=== PATIENT | female | born 1955 | race Two or more races ===

== ENCOUNTER 2017-06-22 19:32 | Inpatient (IN) | payer SELFPAY ==
[~2017-06-22] VITALS: Ht 152.4 cm; Wt 86.9 kg
[~2017-06-22 19:32] MED LIST: FLUO20CA8 PO; LISI1TAB5 PO; METO-239 PO
--- NOTE | 2017-06-22 19:59 | PHYS DOC ---
Past Medical History Past Medical History: Depression, High Cholesterol, Hypertension, Unknown, Other Additional Past Medical Histor: chest tumor, MENINGITIS R/T IBUPROFEN USE Past Surgical History: Hysterectomy Additional Past Surgical Histo: chest tumor removal, hernia Alcohol Use: None Drug Use: None Adult General Chief Complaint Chief Complaint: CHEST PAIN HPI HPI Patient is a 61 year old F who presents with chest pain or hypertension the past 3 hours. Patient rates her pain as a 10 out of 10 with heaviness on her chest. Patient has no history of a stent or CABG however does have a growth on her aortic valve is a history of a lung tumor. Patient denies any radiation of the pain. Patient states she was just sitting there when the pain came on and has not increased with exertion. Patient denies any shortness of breath. Patient denies any nausea/vomiting/diarrhea. He denies any fevers. Patient has no other complaints. Review of Systems Review of Systems GEN: Denies fevers, chills, sweats HEENT: Denies blurred vision, sore throat CV: chest pain RESP: Denies shortness of air, cough GI: Denies n/v/d NEURO: Denies confusion, dizziness MSK: Denies weakness, joint pain/swelling Current Medications Current Medications Current Medications Medications (Trade) Dose Ordered Sig/Oh Start Time Stop Time Status Last Admin Dose Admin Acetaminophen (Tylenol) 650 mg PRN Q4HRS PRN 06/22/17 21:45 06/23/17 21:44 Aspirin (Children'S Aspirin) 324 mg 1X ONCE 06/22/17 20:00 06/22/17 20:01 DC 06/22/17 20:07 324 MG Morphine Sulfate 4 mg PRN Q2HR PRN 06/22/17 21:45 06/23/17 21:44 Nitroglycerin (Nitrostat) 0.4 mg PRN Q5MIN PRN 06/22/17 21:45 06/23/17 21:44 Sodium Chloride 1,000 ml @ 1,000 mls/hr 1X ONCE 06/22/17 20:00 06/22/17 20:59 DC 06/22/17 20:07 1,000 MLS/HR Allergies Allergies Allergies Coded Allergies Type Severity Reaction Last Updated Verified Iodinated Contrast Media - IV Dye Allergy Intermediate 01/25/15 Yes ibuprofen Allergy Intermediate 01/25/15 Yes Physical Exam Physical Exam GEN.: No apparent distress. Alert and oriented. HEENT: Head is normocephalic, atraumatic NECK: Supple. LUNGS: CTAB. HEART: RRR, S1, S2 present. Peripheral pulses intact ABDOMEN: Soft, nontender. Positive bowel sounds. EXTREMITIES: Without any cyanosis. NEUROLOGIC: Normal speech, normal tone PSYCHIATRIC: Normal affect, normal mood. SKIN: No ulcerations Current Patient Data Vital Signs Vital Signs Date Time Temp Pulse Resp B/P (MAP) Pulse Ox O2 Delivery O2 Flow Rate FiO2 06/22/17 21:47 58 150/70 (96) Room Air 06/22/17 21:08 26 98 06/22/17 19:40 98.3 98.3 Lab Values Laboratory Tests Test 06/22/17 19:40 White Blood Count 11.7 x10^3/uL (4.0-11.0) H Red Blood Count 4.86 x10^6/uL (3.50-5.40) Hemoglobin 13.9 g/dL (12.0-15.5) Hematocrit 41.8 % (36.0-47.0) Mean Corpuscular Volume 86 fL (79-100) Mean Corpuscular Hemoglobin 29 pg (25-35) Mean Corpuscular Hemoglobin Concent 33 g/dL (31-37) Red Cell Distribution Width 14.2 % (11.5-14.5) Platelet Count 365 x10^3/uL (140-400) Neutrophils (%) (Auto) 56 % (31-73) Lymphocytes (%) (Auto) 34 % (24-48) Monocytes (%) (Auto) 7 % (0-9) Eosinophils (%) (Auto) 2 % (0-3) Basophils (%) (Auto) 1 % (0-3) Neutrophils # (Auto) 6.6 x10^3uL (1.8-7.7) Lymphocytes # (Auto) 4.0 x10^3/uL (1.0-4.8) Monocytes # (Auto) 0.8 x10^3/uL (0.0-1.1) Eosinophils # (Auto) 0.2 x10^3/uL (0.0-0.7) Basophils # (Auto) 0.1 x10^3/uL (0.0-0.2) Sodium Level 143 mmol/L (136-145) Potassium Level 3.7 mmol/L (3.5-5.1) Chloride Level 104 mmol/L (98-107) Carbon Dioxide Level 33 mmol/L (21-32) H Anion Gap 6 (6-14) Blood Urea Nitrogen 18 mg/dL (7-20) Creatinine 0.8 mg/dL (0.6-1.0) Estimated GFR (Cockcroft-Gault) 73.4 BUN/Creatinine Ratio 23 (6-20) H Glucose Level 114 mg/dL (70-99) H Calcium Level 9.3 mg/dL (8.5-10.1) Total Bilirubin 0.2 mg/dL (0.2-1.0) Aspartate Amino Transferase (AST) 20 U/L (15-37) Alanine Aminotransferase (ALT) 28 U/L (14-59) Alkaline Phosphatase 87 U/L (46-116) Troponin I Quantitative < 0.017 ng/mL (0.000-0.055) Total Protein 7.7 g/dL (6.4-8.2) Albumin 3.4 g/dL (3.4-5.0) Albumin/Globulin Ratio 0.8 (1.0-1.7) L Laboratory Tests 06/22/17 19:40 Laboratory Tests 06/22/17 19:40 EKG EKG 1940: EKG shows normal sinus rhythm rate of 76 no STEMI[] Radiology/Procedures Radiology/Procedures Chest x-ray shows cardiomegaly[] Course & Med Decision Making Course & Med Decision Making Pertinent Labs and Imaging studies reviewed. (See chart for details) ED course: Patient was seen and examined emergency room cardiac workup was ordered CTA scan of the chest was not ordered since the patient is severely allergic to contrast media 3: On reevaluation the patient's chest pain is resolved while sitting in the bed however when she got walk to the bathroom she had reproducible chest pain with exertion. Plan is to admit the patient for further evaluation and management. 2149: Discussed CC/HP/PMH with Dr. horton and recommends admit with cardiology on consult MDM: After reviewing the chart, CC/HPI/PMH, physical exam, [lab results], [ radiological results], I do not believe the patient having a STEMI however given her persistent chest pain and discomfort along with her age and previous risk factors we'll admit for further evaluation and management. A CT scan of the chest was not ordered secondary to the patient's severe contrast media allergy therefore we'll allow the admitting team to evaluate for the possibility or in need of a VQ scan. [] Dragon Disclaimer Dragon Disclaimer This electronic medical record was generated, in whole or in part, using a voice recognition dictation system. Departure Departure Impression: Primary Impression: Chest pain Disposition: ADMITTED INPATIENT Admitting Physician: Frieda Horton Condition: STABLE Referrals: UNKNOWN PCP NAME (PCP) MALIK CUNNINGHAM DO Jun 22, 2017 19:59
[2017-06-22] MEDS ORDERED: IV NORMAL SALINE 1000ML BAG 1,000 ML IV ONE (20:00)
[2017-06-22] MEDS ORDERED: ASPIRIN CHEWABLE 81 MG TABLET. PO ONE (20:00)
[2017-06-22 20:01] LABS: BASO # 0.1 x10^3/uL (0.0-0.2); BASO % 1 % (0-3); EOS % 2 % (0-3); HEMATOCRIT 41.8 % (36.0-47.0); HEMOGLOBIN 13.9 g/dL (12.0-15.5); LYMPH % 34 % (24-48); MEAN CORPUSCULAR HEMOGLOBIN 29 pg (25-35); MEAN CORPUSCULAR HGB CONC 33 g/dL (31-37); MEAN CORPUSCULAR VOLUME 86 fL (79-100); MONO % 7 % (0-9); NEUT % 56 % (31-73); PLATELET COUNT 365 x10^3/uL (140-400); RED BLOOD COUNT 4.86 x10^6/uL (3.50-5.40); RED CELL DISTRIBUTION WIDTH 14.2 % (11.5-14.5); WHITE BLOOD COUNT 11.7 x10^3/uL (4.0-11.0)
[2017-06-22 20:16] LABS: CALCIUM 9.3 mg/dL (8.5-10.1); CREATININE 0.8 mg/dL (0.6-1.0); GFR 73.4; POTASSIUM 3.7 mmol/L (3.5-5.1)
[2017-06-22 20:32] LABS: ALBUMIN 3.4 g/dL (3.4-5.0); ALBUMIN/GLOBULIN RATIO 0.8 (1.0-1.7); TOTAL BILIRUBIN 0.2 mg/dL (0.2-1.0); TOTAL PROTEIN 7.7 g/dL (6.4-8.2)
[2017-06-22] MEDS ORDERED: MORPHINE SULFATE 4 MG/ML DISP.SYRIN. IV PRN (21:45)
[2017-06-22] MEDS ORDERED: NITROGLYCERIN SUBLINGUAL 0.4 MG BOTTLE OF 25. SL PRN (21:45)
[2017-06-22] MEDS ORDERED: ACETAMINOPHEN 325 MG TABLET. PO PRN (21:45)
[2017-06-22 23:00] VITALS: BP 169/74
--- NOTE | 2017-06-22 23:14 | PDOC1 ---
History and Physical Date of Admission Date of Admission DATE: 06/22/17 TIME: 23:13 Identification/Chief Complaint Chief Complaint chest pain Problems: Source Source: Chart review, Patient History of Present Illness History of Present Illness Ms. Newell is a 61 year old F admit from ER with acute chest pain sudden onset of pain today at rest, sharp pain to left chest with pressure. She has rated her pain as a 10 out of 10 with heaviness on her chest. Pain now better, maybe 5/10 Patient has no history of a stent or CABG however does have a growth on her aortic valve is a history of a lung tumor. Patient states she was just sitting there when the pain came on w/ new exercise intolerane, and pain with exertion. . Patient denies any shortness of breath at rest. Patient denies any nausea/ vomiting/diarrhea. Past Medical History Cardiovascular: HTN Pulmonary: Asthma GI: No pertinent hx Family History Family History: Diabetes Social History Smoke: No ALCOHOL: none Drugs: None Current Problem List Problem List Problems Medical Problems: (1) Chest pain Status: Acute Problems: Current Medications Current Medications Current Medications Aspirin (Children'S Aspirin) 324 mg 1X ONCE PO Last administered on 20:07; Start 06/22/17 at 20:00; Stop 06/22/17 at 20:01; Status DC Sodium Chloride 1,000 ml @ 1,000 mls/hr 1X ONCE IV Last administered on 06/22 20:07; Start 06/22/17 at 20:00; Stop 06/22/17 at 20:59; Status DC Morphine Sulfate 4 mg PRN Q2HR PRN IV SEVERE PAIN; Start 06/22/17 at 21:45; Stop 06/23/17 at 21:44 Acetaminophen (Tylenol) 650 mg PRN Q4HRS PRN PO FEVER; Start 06/22/17 at 21:45 ; Stop 06/23/17 at 21:44 Nitroglycerin (Nitrostat) 0.4 mg PRN Q5MIN PRN SL CHEST PAIN; Start 06/22/17 at 21:45; Stop 06/23/17 at 21:44 Active Scripts Active Reported Metoprolol Succinate ( Xl ) (Metoprolol Succinate) 25 Mg Tab.er.24h 50 Mg PO DAILY Fluoxetine Hcl 20 Mg Capsule 1 Cap PO DAILY Lisinopril-Hctz 20-12.5 Mg Tab (Lisinopril/Hydrochlorothiazide) 1 Each Tablet 1 Tab PO BID Allergies Allergies: Coded Allergies: Iodinated Contrast Media - IV Dye (Verified Allergy, Intermediate, 01/25/15 ) ibuprofen (Verified Allergy, Intermediate, 01/25/15) ROS General: YES: Other, No: Chills, Night Sweats, Fatigue, Malaise PSYCHOLOGICAL ROS: No: Anxiety, Behavioral Disorder, Concentration difficultie , Decreased libido, Depression, Disorientation, Hallucinations, Hostility, Irritablity, Memory difficulties, Mood Swings, Obsessive thoughts HEENT: YES: Heacaches Respiratory: YES: Shortness of breath, SOB with excertion, No: Cough, Hemoptysis, Orthopnea, Pleuritic Pain, Sputum Changes, Stridor, Tachypnea, Wheezing, Other Cardiovascular: yes Chest Pain, No Palpitations, No Orthopnea, No Paroxysmal Noc. Dyspnea, No Edema, No Lt Headedness, No Other Gastrointestinal: Yes Nausea, No Vomiting, No Abdominal Pain, No Diarrhea, No Constipation, No Melena, No Hematochezia, No Other Genitourinary: No Dysuria, No Frequency, No Incontinence, No Hematuria, No Retention, No Discharge, No Urgency, No Pain, No Flank Pain, No Other, No , No , No , No , No , No , No Musculoskeletal: Yes Joint Pain, Yes Joint Stiffness, No Gait Disturbance, No Joint Swelling, No Muscle Pain, No Muscular Weakness , No Pain In:, No Swelling In:, No Other Neurological: No Behavorial Changes, No Bowel/Bladder ControlChng, No Confusion , No Dizziness, No Gait Disturbance, No Headaches, No Impaired Coord/balance, No Memory Loss, No Numbness/Tingling, No Seizures, No Speech Problems, No Tremors, No Visual Changes, No Weakness, No Other Skin: Yes Dry Skin, No Eczema, No Hair Changes, No Lumps, No Mole Changes, No Mottling, No Nail Changes, No Pruritus, No Rash, No Skin Lesion Changes, No Other, No Acne Physical Exam General: Alert, Cooperative, No acute distress HEENT: Atraumatic, PERRLA, EOMI, Mucous membr. moist/pink Lungs: Clear to auscultation Heart: S1S2, no gallops, murmurs Abdomen: Normal bowel sounds, Soft Rectal Exam: not examined Extremities: No edema Skin: No breakdown, No significant lesion Neuro: Normal gait, Sensation intact Psych/Mental Status: Mood NL Vitals Vitals Vital Signs Date Time Temp Pulse Resp B/P (MAP) Pulse Ox O2 Delivery O2 Flow Rate FiO2 06/22/17 21:47 58 150/70 (96) Room Air 06/22/17 21:08 26 98 06/22/17 19:40 98.3 98.3 Labs Labs Laboratory Tests Test 06/22/17 19:40 White Blood Count 11.7 x10^3/uL (4.0-11.0) Red Blood Count 4.86 x10^6/uL (3.50-5.40) Hemoglobin 13.9 g/dL (12.0-15.5) Hematocrit 41.8 % (36.0-47.0) Mean Corpuscular Volume 86 fL (79-100) Mean Corpuscular Hemoglobin 29 pg (25-35) Mean Corpuscular Hemoglobin Concent 33 g/dL (31-37) Red Cell Distribution Width 14.2 % (11.5-14.5) Platelet Count 365 x10^3/uL (140-400) Neutrophils (%) (Auto) 56 % (31-73) Lymphocytes (%) (Auto) 34 % (24-48) Monocytes (%) (Auto) 7 % (0-9) Eosinophils (%) (Auto) 2 % (0-3) Basophils (%) (Auto) 1 % (0-3) Neutrophils # (Auto) 6.6 x10^3uL (1.8-7.7) Lymphocytes # (Auto) 4.0 x10^3/uL (1.0-4.8) Monocytes # (Auto) 0.8 x10^3/uL (0.0-1.1) Eosinophils # (Auto) 0.2 x10^3/uL (0.0-0.7) Basophils # (Auto) 0.1 x10^3/uL (0.0-0.2) Sodium Level 143 mmol/L (136-145) Potassium Level 3.7 mmol/L (3.5-5.1) Chloride Level 104 mmol/L (98-107) Carbon Dioxide Level 33 mmol/L (21-32) Anion Gap 6 (6-14) Blood Urea Nitrogen 18 mg/dL (7-20) Creatinine 0.8 mg/dL (0.6-1.0) Estimated GFR (Cockcroft-Gault) 73.4 BUN/Creatinine Ratio 23 (6-20) Glucose Level 114 mg/dL (70-99) Calcium Level 9.3 mg/dL (8.5-10.1) Total Bilirubin 0.2 mg/dL (0.2-1.0) Aspartate Amino Transf (AST/SGOT) 20 U/L (15-37) Alanine Aminotransferase (ALT/SGPT) 28 U/L (14-59) Alkaline Phosphatase 87 U/L (46-116) Troponin I Quantitative < 0.017 ng/mL (0.000-0.055) Total Protein 7.7 g/dL (6.4-8.2) Albumin 3.4 g/dL (3.4-5.0) Albumin/Globulin Ratio 0.8 (1.0-1.7) Laboratory Tests Test 06/22/17 19:40 White Blood Count 11.7 x10^3/uL (4.0-11.0) Red Blood Count 4.86 x10^6/uL (3.50-5.40) Hemoglobin 13.9 g/dL (12.0-15.5) Hematocrit 41.8 % (36.0-47.0) Mean Corpuscular Volume 86 fL (79-100) Mean Corpuscular Hemoglobin 29 pg (25-35) Mean Corpuscular Hemoglobin Concent 33 g/dL (31-37) Red Cell Distribution Width 14.2 % (11.5-14.5) Platelet Count 365 x10^3/uL (140-400) Neutrophils (%) (Auto) 56 % (31-73) Lymphocytes (%) (Auto) 34 % (24-48) Monocytes (%) (Auto) 7 % (0-9) Eosinophils (%) (Auto) 2 % (0-3) Basophils (%) (Auto) 1 % (0-3) Neutrophils # (Auto) 6.6 x10^3uL (1.8-7.7) Lymphocytes # (Auto) 4.0 x10^3/uL (1.0-4.8) Monocytes # (Auto) 0.8 x10^3/uL (0.0-1.1) Eosinophils # (Auto) 0.2 x10^3/uL (0.0-0.7) Basophils # (Auto) 0.1 x10^3/uL (0.0-0.2) Sodium Level 143 mmol/L (136-145) Potassium Level 3.7 mmol/L (3.5-5.1) Chloride Level 104 mmol/L (98-107) Carbon Dioxide Level 33 mmol/L (21-32) Anion Gap 6 (6-14) Blood Urea Nitrogen 18 mg/dL (7-20) Creatinine 0.8 mg/dL (0.6-1.0) Estimated GFR (Cockcroft-Gault) 73.4 BUN/Creatinine Ratio 23 (6-20) Glucose Level 114 mg/dL (70-99) Calcium Level 9.3 mg/dL (8.5-10.1) Total Bilirubin 0.2 mg/dL (0.2-1.0) Aspartate Amino Transf (AST/SGOT) 20 U/L (15-37) Alanine Aminotransferase (ALT/SGPT) 28 U/L (14-59) Alkaline Phosphatase 87 U/L (46-116) Troponin I Quantitative < 0.017 ng/mL (0.000-0.055) Total Protein 7.7 g/dL (6.4-8.2) Albumin 3.4 g/dL (3.4-5.0) Albumin/Globulin Ratio 0.8 (1.0-1.7) VTE Prophylaxis Ordered VTE Prophylaxis Devices: No VTE Pharmacological Prophylaxi: Yes Assessment/Plan Assessment/Plan chest pain, angina, r/o acs pleuritic type pain, poss acute viral illnes with dyspnea, she desribed as "lungs feel closed" obeistdwayne, BMI 40 prior lung mass resected, known cardiac mass stable, has been following FABI Yuen MD Jun 22, 2017 23:14
[2017-06-23] MEDS ORDERED: METO50TA29 PO (00:07)
[2017-06-23] MEDS ORDERED: AMLO5TAB2 PO (00:07)
[2017-06-23] MEDS ORDERED: INFLUENZA VAX SCREEN BY RX. MC ONE (02:00)
[2017-06-23 03:04] VITALS: BP 135/69
[2017-06-23 05:14] LABS: BASO % 0 % (0-3); EOS % 2 % (0-3); HEMATOCRIT 39.7 % (36.0-47.0); HEMOGLOBIN 13.3 g/dL (12.0-15.5); LYMPH # 3.4 x10^3/uL (1.0-4.8); LYMPH % 37 % (24-48); MEAN CORPUSCULAR HEMOGLOBIN 29 pg (25-35); MEAN CORPUSCULAR HGB CONC 33 g/dL (31-37); MEAN CORPUSCULAR VOLUME 87 fL (79-100); MONO % 7 % (0-9); NEUT % 54 % (31-73); PLATELET COUNT 309 x10^3/uL (140-400); RED BLOOD COUNT 4.58 x10^6/uL (3.50-5.40); RED CELL DISTRIBUTION WIDTH 13.9 % (11.5-14.5)
[2017-06-23 05:31] LABS: CREATININE 0.5 mg/dL (0.6-1.0); GFR 126.3; POTASSIUM 4.3 mmol/L (3.5-5.1)
[2017-06-23 07:00] VITALS: BP 156/72
--- NOTE | 2017-06-23 07:58 | RAD ---
Indication: Short of air, chest heaviness. Technique: Upright portable chest radiograph was obtained. Comparison is from July 31, 2016. Findings: Heart is upper limits of normal in size. Pulmonary vasculature appears mildly cephalized although this can be accentuated by portable technique. Median sternotomy wires are noted. No focal airspace disease is apparent. Leads overlie the patient. Impression: Borderline cardiomegaly and mild vascular congestion suspected.
[2017-06-23] MEDS ORDERED: IPRATRPIUM/ALBUTEROL 0.5/2.5MG 3 ML NEBU. NEB SCH (08:00)
--- NOTE | 2017-06-23 08:11 | EKG ---
[facility] [address] [place] [address] Test Date: 2017-06-22 Test Time: 19:40:31 Pat Name: SHILA CHAVEZ Department: Room: Gender: F [employer]: : 1955 Requested By: MALIK CUNNINGHAM Order Number: [id number] Reading MD: Measurements Intervals [place] Rate: 76 P: 54 MA: 174 QRS: 10 QRSD: 84 T: 30 QT: 382 QTc: 434 Interpretive Statements SINUS RHYTHM NON SPECIFIC T ABNORMALITY RI6.01 Unconfirmed report No previous ECG available for comparison
[2017-06-23] MEDS ORDERED: FLU VACC QS2017-18 (36MOS+)/PF 0.5 ML SYRINGE. VAX IM ONE (09:00)
[2017-06-23 11:00] VITALS: BP 157/70
--- NOTE | 2017-06-23 11:16 | PDOC2 ---
CONSULT Date of Consult Date of Consult DATE: 06/23/17 TIME: 11:04 Reason for Consult Reason for Consult: Chest pain Identification/Chief Complaint Chief Complaint Chest Pain Problems: (1) Chest pain Source Source: Patient History of Present Illness Reason for Visit: Miss Newell is a pleasant 61 year old female who presented to the ED with chest pain. She reports that she has had chest pain with exertion for a several months , but this chest pain was worse and was at rest. This increased chest pain has been on and off consistently for the past two days. She described the chest pain as a heaviness, 10/10 at its worst, and a feeling of not being able to catch her breath. She also reports shortness of air on exertion and nausea. She also reports that for the past several months, she has had 5+ coughing episodes every day. She reports being around sick contacts--2 members of her family who live with her. In the past I saw her several years ago and she has an aortic subvalvular membrane that 5 years ago was estimated by a CUCA done in to have a gradient of 10 mmHg therefore he was not deemed to require surgery at that time. She had a normal left ventricular ejection fraction and no significant problems with the aortic valve. The pains that the patient has been having have been coming and going for some time and they are somewhat chronic. She has had multiple workups for this including stress tests, echocardiogram, CUCA. 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) Pulmonary: Asthma GI: No pertinent hx Psych: Depression Family History Family History Mother-[place] Sister-angina Brother-stroke Family History: Diabetes Social History No ALCOHOL: none Drugs: None Lives: with Family Current Problem List Problem List Problems Medical Problems: (1) Chest pain Status: Acute Current Medications Current Medications Current Medications Aspirin (Children'S Aspirin) 324 mg 1X ONCE PO Last administered on 20:07; Start 06/22/17 at 20:00; Stop 06/22/17 at 20:01; Status DC Sodium Chloride 1,000 ml @ 1,000 mls/hr 1X ONCE IV Last administered on 06/22 20:07; Start 06/22/17 at 20:00; Stop 06/22/17 at 20:59; Status DC Morphine Sulfate 4 mg PRN Q2HR PRN IV SEVERE PAIN; Start 06/22/17 at 21:45; Stop 06/23/17 at 21:44 Acetaminophen (Tylenol) 650 mg PRN Q4HRS PRN PO FEVER; Start 06/22/17 at 21:45 ; Stop 06/23/17 at 21:44 Nitroglycerin (Nitrostat) 0.4 mg PRN Q5MIN PRN SL CHEST PAIN; Start 06/22/17 at 21:45; Stop 06/23/17 at 21:44 Albuterol/ Ipratropium (Duoneb) 3 ml RTBID NEB Last administered on 06/23/17t 07:08; Start 06/23/17 at 08:00; Stop 06/23/17 at 10:00; Status DC Info (Do NOT chart on this placeholder) 1 each 1X ONCE MC ; Start 06/23/17 at 02:00; Stop 06/23/17 at 02:01; Status UNV Influenza Virus Vaccine Quadrival (Fluarix Quad [id number] Syringe) 0.5 ml ONCE ONCE VAX IM ; Start 06/23/17 at 09:00; Stop 06/23/17 at 09:01; Status DC Active Scripts Active Reported Amlodipine Besylate 5 Mg Tablet 5 Mg PO DAILY Metoprolol Succinate 50 Mg Tab.er.24h 100 Mg PO DAILY Fluoxetine Hcl 20 Mg Capsule 1 Cap PO DAILY Lisinopril-Hctz 20-12.5 Mg Tab (Lisinopril/Hydrochlorothiazide) 1 Each Tablet 1 Tab PO DAILY Allergies Allergies: Coded Allergies: Iodinated Contrast Media - IV Dye (Verified Allergy, Intermediate, 01/25/15 ) ibuprofen (Verified Allergy, Intermediate, 01/25/15) ROS Review of System +chest pain with exertion +nausea +coughing +shortness of air Physical Exam Physical Exam General: no acute distress, pleasant HEENT: EOMI, no oropharyngeal erythema, moist mucous membranes, no JVD CV: regular rate and rhythm. Normal S1, normal S2, there is a 1 to 2/6 systolic murmur present her add sides of the sternum, second intercostal space. No diastolic murmur was heard respiratory: clear to auscultation bilaterally; no increased work of breathing abdomen: soft, tender to palpation in lower abdomen, non-distended extremities: no clubbing, cyanosis or edema Vitals VITALS Vital Signs Date Time Temp Pulse Resp B/P (MAP) Pulse Ox O2 Delivery O2 Flow Rate FiO2 06/23/17 08:00 Room Air 06/23/17 07:09 98 06/23/17 07:00 98.0 61 18 156/72 (100) 98.0 Labs Labs Laboratory Tests Test 06/22/17 19:40 06/23/17 01:10 06/23/17 04:15 White Blood Count 11.7 x10^3/uL (4.0-11.0) 9.0 x10^3/uL (4.0-11.0) Red Blood Count 4.86 x10^6/uL (3.50-5.40) 4.58 x10^6/uL (3.50-5.40) Hemoglobin 13.9 g/dL (12.0-15.5) 13.3 g/dL (12.0-15.5) Hematocrit 41.8 % (36.0-47.0) 39.7 % (36.0-47.0) Mean Corpuscular Volume 86 fL (79-100) 87 fL (79-100) Mean Corpuscular Hemoglobin 29 pg (25-35) 29 pg (25-35) Mean Corpuscular Hemoglobin Concent 33 g/dL (31-37) 33 g/dL (31-37) Red Cell Distribution Width 14.2 % (11.5-14.5) 13.9 % (11.5-14.5) Platelet Count 365 x10^3/uL (140-400) 309 x10^3/uL (140-400) Neutrophils (%) (Auto) 56 % (31-73) 54 % (31-73) Lymphocytes (%) (Auto) 34 % (24-48) 37 % (24-48) Monocytes (%) (Auto) 7 % (0-9) 7 % (0-9) Eosinophils (%) (Auto) 2 % (0-3) 2 % (0-3) Basophils (%) (Auto) 1 % (0-3) 0 % (0-3) Neutrophils # (Auto) 6.6 x10^3uL (1.8-7.7) 4.8 x10^3uL (1.8-7.7) Lymphocytes # (Auto) 4.0 x10^3/uL (1.0-4.8) 3.4 x10^3/uL (1.0-4.8) Monocytes # (Auto) 0.8 x10^3/uL (0.0-1.1) 0.6 x10^3/uL (0.0-1.1) Eosinophils # (Auto) 0.2 x10^3/uL (0.0-0.7) 0.2 x10^3/uL (0.0-0.7) Basophils # (Auto) 0.1 x10^3/uL (0.0-0.2) 0.0 x10^3/uL (0.0-0.2) Sodium Level 143 mmol/L (136-145) 143 mmol/L (136-145) Potassium Level 3.7 mmol/L (3.5-5.1) 4.3 mmol/L (3.5-5.1) Chloride Level 104 mmol/L (98-107) 106 mmol/L (98-107) Carbon Dioxide Level 33 mmol/L (21-32) 30 mmol/L (21-32) Anion Gap 6 (6-14) 7 (6-14) Blood Urea Nitrogen 18 mg/dL (7-20) 13 mg/dL (7-20) Creatinine 0.8 mg/dL (0.6-1.0) 0.5 mg/dL (0.6-1.0) Estimated GFR (Cockcroft-Gault) 73.4 126.3 BUN/Creatinine Ratio 23 (6-20) Glucose Level 114 mg/dL (70-99) 101 mg/dL (70-99) Calcium Level 9.3 mg/dL (8.5-10.1) 9.0 mg/dL (8.5-10.1) Total Bilirubin 0.2 mg/dL (0.2-1.0) Aspartate Amino Transf (AST/SGOT) 20 U/L (15-37) Alanine Aminotransferase (ALT/SGPT) 28 U/L (14-59) Alkaline Phosphatase 87 U/L (46-116) Troponin I Quantitative < 0.017 ng/mL (0.000-0.055) < 0.017 ng/mL (0.000-0.055) < 0.017 ng/mL (0.000-0.055) Total Protein 7.7 g/dL (6.4-8.2) Albumin 3.4 g/dL (3.4-5.0) Albumin/Globulin Ratio 0.8 (1.0-1.7) Laboratory Tests Test 06/22/17 19:40 06/23/17 01:10 06/23/17 04:15 White Blood Count 11.7 x10^3/uL (4.0-11.0) 9.0 x10^3/uL (4.0-11.0) Red Blood Count 4.86 x10^6/uL (3.50-5.40) 4.58 x10^6/uL (3.50-5.40) Hemoglobin 13.9 g/dL (12.0-15.5) 13.3 g/dL (12.0-15.5) Hematocrit 41.8 % (36.0-47.0) 39.7 % (36.0-47.0) Mean Corpuscular Volume 86 fL (79-100) 87 fL (79-100) Mean Corpuscular Hemoglobin 29 pg (25-35) 29 pg (25-35) Mean Corpuscular Hemoglobin Concent 33 g/dL (31-37) 33 g/dL (31-37) Red Cell Distribution Width 14.2 % (11.5-14.5) 13.9 % (11.5-14.5) Platelet Count 365 x10^3/uL (140-400) 309 x10^3/uL (140-400) Neutrophils (%) (Auto) 56 % (31-73) 54 % (31-73) Lymphocytes (%) (Auto) 34 % (24-48) 37 % (24-48) Monocytes (%) (Auto) 7 % (0-9) 7 % (0-9) Eosinophils (%) (Auto) 2 % (0-3) 2 % (0-3) Basophils (%) (Auto) 1 % (0-3) 0 % (0-3) Neutrophils # (Auto) 6.6 x10^3uL (1.8-7.7) 4.8 x10^3uL (1.8-7.7) Lymphocytes # (Auto) 4.0 x10^3/uL (1.0-4.8) 3.4 x10^3/uL (1.0-4.8) Monocytes # (Auto) 0.8 x10^3/uL (0.0-1.1) 0.6 x10^3/uL (0.0-1.1) Eosinophils # (Auto) 0.2 x10^3/uL (0.0-0.7) 0.2 x10^3/uL (0.0-0.7) Basophils # (Auto) 0.1 x10^3/uL (0.0-0.2) 0.0 x10^3/uL (0.0-0.2) Sodium Level 143 mmol/L (136-145) 143 mmol/L (136-145) Potassium Level 3.7 mmol/L (3.5-5.1) 4.3 mmol/L (3.5-5.1) Chloride Level 104 mmol/L (98-107) 106 mmol/L (98-107) Carbon Dioxide Level 33 mmol/L (21-32) 30 mmol/L (21-32) Anion Gap 6 (6-14) 7 (6-14) Blood Urea Nitrogen 18 mg/dL (7-20) 13 mg/dL (7-20) Creatinine 0.8 mg/dL (0.6-1.0) 0.5 mg/dL (0.6-1.0) Estimated GFR (Cockcroft-Gault) 73.4 126.3 BUN/Creatinine Ratio 23 (6-20) Glucose Level 114 mg/dL (70-99) 101 mg/dL (70-99) Calcium Level 9.3 mg/dL (8.5-10.1) 9.0 mg/dL (8.5-10.1) Total Bilirubin 0.2 mg/dL (0.2-1.0) Aspartate Amino Transf (AST/SGOT) 20 U/L (15-37) Alanine Aminotransferase (ALT/SGPT) 28 U/L (14-59) Alkaline Phosphatase 87 U/L (46-116) Troponin I Quantitative < 0.017 ng/mL (0.000-0.055) < 0.017 ng/mL (0.000-0.055) < 0.017 ng/mL (0.000-0.055) Total Protein 7.7 g/dL (6.4-8.2) Albumin 3.4 g/dL (3.4-5.0) Albumin/Globulin Ratio 0.8 (1.0-1.7) Assessment/Plan Assessment/Plan 61 year old female admitted with chest pain Chest pain: negative troponins x3 and no significant changes in her EKG. 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 This is not HOCM. In view of this I would like to do an echocardiogram and then depending on what the echocardiogram shows decide if we need to do a heart catheterization or a CUCA or a stress test. Thank you very much for asking me to participate in the care of this patient. NING OLIVARES MD Jun 23, 2017 11:16
--- NOTE | 2017-06-23 12:29 | PDOC ---
PROGRESS NOTES Chief Complaint Chief Complaint CHest pain History of Present Illness History of Present Illness Patient was seen with her in cardiovascular care unit. Pt speaks minimal khmer and her served as stitcher operator. She was admitted from ER with acute, sudden onset chest pain that started at rest (sharp pain w/ pressure to left chest). Patient is resting comfortably in bed today. 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 She is followed by Dr. Sandhu re: her valvular growth. Patient has an allergy to IV contrast dye. Vitals Vitals Vital Signs Date Time Temp Pulse Resp B/P (MAP) Pulse Ox O2 Delivery O2 Flow Rate FiO2 06/23/17 08:00 Room Air 06/23/17 07:09 98 06/23/17 07:00 98.0 61 18 156/72 (100) 98.0 Physical Exam General: Alert, Cooperative, No acute distress Lungs: Clear Abdomen: Normal bowel sounds, Soft Extremities: No edema Skin: No breakdown, No significant lesion Labs LABS Laboratory Tests Test 06/22/17 19:40 06/23/17 01:10 06/23/17 04:15 White Blood Count 11.7 x10^3/uL (4.0-11.0) 9.0 x10^3/uL (4.0-11.0) Red Blood Count 4.86 x10^6/uL (3.50-5.40) 4.58 x10^6/uL (3.50-5.40) Hemoglobin 13.9 g/dL (12.0-15.5) 13.3 g/dL (12.0-15.5) Hematocrit 41.8 % (36.0-47.0) 39.7 % (36.0-47.0) Mean Corpuscular Volume 86 fL (79-100) 87 fL (79-100) Mean Corpuscular Hemoglobin 29 pg (25-35) 29 pg (25-35) Mean Corpuscular Hemoglobin Concent 33 g/dL (31-37) 33 g/dL (31-37) Red Cell Distribution Width 14.2 % (11.5-14.5) 13.9 % (11.5-14.5) Platelet Count 365 x10^3/uL (140-400) 309 x10^3/uL (140-400) Neutrophils (%) (Auto) 56 % (31-73) 54 % (31-73) Lymphocytes (%) (Auto) 34 % (24-48) 37 % (24-48) Monocytes (%) (Auto) 7 % (0-9) 7 % (0-9) Eosinophils (%) (Auto) 2 % (0-3) 2 % (0-3) Basophils (%) (Auto) 1 % (0-3) 0 % (0-3) Neutrophils # (Auto) 6.6 x10^3uL (1.8-7.7) 4.8 x10^3uL (1.8-7.7) Lymphocytes # (Auto) 4.0 x10^3/uL (1.0-4.8) 3.4 x10^3/uL (1.0-4.8) Monocytes # (Auto) 0.8 x10^3/uL (0.0-1.1) 0.6 x10^3/uL (0.0-1.1) Eosinophils # (Auto) 0.2 x10^3/uL (0.0-0.7) 0.2 x10^3/uL (0.0-0.7) Basophils # (Auto) 0.1 x10^3/uL (0.0-0.2) 0.0 x10^3/uL (0.0-0.2) Sodium Level 143 mmol/L (136-145) 143 mmol/L (136-145) Potassium Level 3.7 mmol/L (3.5-5.1) 4.3 mmol/L (3.5-5.1) Chloride Level 104 mmol/L (98-107) 106 mmol/L (98-107) Carbon Dioxide Level 33 mmol/L (21-32) 30 mmol/L (21-32) Anion Gap 6 (6-14) 7 (6-14) Blood Urea Nitrogen 18 mg/dL (7-20) 13 mg/dL (7-20) Creatinine 0.8 mg/dL (0.6-1.0) 0.5 mg/dL (0.6-1.0) Estimated GFR (Cockcroft-Gault) 73.4 126.3 BUN/Creatinine Ratio 23 (6-20) Glucose Level 114 mg/dL (70-99) 101 mg/dL (70-99) Calcium Level 9.3 mg/dL (8.5-10.1) 9.0 mg/dL (8.5-10.1) Total Bilirubin 0.2 mg/dL (0.2-1.0) Aspartate Amino Transf (AST/SGOT) 20 U/L (15-37) Alanine Aminotransferase (ALT/SGPT) 28 U/L (14-59) Alkaline Phosphatase 87 U/L (46-116) Troponin I Quantitative < 0.017 ng/mL (0.000-0.055) < 0.017 ng/mL (0.000-0.055) < 0.017 ng/mL (0.000-0.055) Total Protein 7.7 g/dL (6.4-8.2) Albumin 3.4 g/dL (3.4-5.0) Albumin/Globulin Ratio 0.8 (1.0-1.7) Review of Systems Review of Systems Patient indicates CP is improving. No SOB. No abdominal pain or discomfort. Assessment and Plan Assessmemt and Plan Problems Medical Problems: (1) Chest pain Status: Acute Chest pain Plan: Consult cardiology Consult pulmonology Continue cardiac monitoring Serial cardiac enzymes Serial EKG Repeat labs Continue home medications Await [facility] medical records PT/OT Problems: Comment Review of Relevant I have reviewed the following items edu (where applicable) has been applied. Labs Laboratory Tests Test 06/22/17 19:40 06/23/17 01:10 06/23/17 04:15 White Blood Count 11.7 x10^3/uL (4.0-11.0) 9.0 x10^3/uL (4.0-11.0) Red Blood Count 4.86 x10^6/uL (3.50-5.40) 4.58 x10^6/uL (3.50-5.40) Hemoglobin 13.9 g/dL (12.0-15.5) 13.3 g/dL (12.0-15.5) Hematocrit 41.8 % (36.0-47.0) 39.7 % (36.0-47.0) Mean Corpuscular Volume 86 fL (79-100) 87 fL (79-100) Mean Corpuscular Hemoglobin 29 pg (25-35) 29 pg (25-35) Mean Corpuscular Hemoglobin Concent 33 g/dL (31-37) 33 g/dL (31-37) Red Cell Distribution Width 14.2 % (11.5-14.5) 13.9 % (11.5-14.5) Platelet Count 365 x10^3/uL (140-400) 309 x10^3/uL (140-400) Neutrophils (%) (Auto) 56 % (31-73) 54 % (31-73) Lymphocytes (%) (Auto) 34 % (24-48) 37 % (24-48) Monocytes (%) (Auto) 7 % (0-9) 7 % (0-9) Eosinophils (%) (Auto) 2 % (0-3) 2 % (0-3) Basophils (%) (Auto) 1 % (0-3) 0 % (0-3) Neutrophils # (Auto) 6.6 x10^3uL (1.8-7.7) 4.8 x10^3uL (1.8-7.7) Lymphocytes # (Auto) 4.0 x10^3/uL (1.0-4.8) 3.4 x10^3/uL (1.0-4.8) Monocytes # (Auto) 0.8 x10^3/uL (0.0-1.1) 0.6 x10^3/uL (0.0-1.1) Eosinophils # (Auto) 0.2 x10^3/uL (0.0-0.7) 0.2 x10^3/uL (0.0-0.7) Basophils # (Auto) 0.1 x10^3/uL (0.0-0.2) 0.0 x10^3/uL (0.0-0.2) Sodium Level 143 mmol/L (136-145) 143 mmol/L (136-145) Potassium Level 3.7 mmol/L (3.5-5.1) 4.3 mmol/L (3.5-5.1) Chloride Level 104 mmol/L (98-107) 106 mmol/L (98-107) Carbon Dioxide Level 33 mmol/L (21-32) 30 mmol/L (21-32) Anion Gap 6 (6-14) 7 (6-14) Blood Urea Nitrogen 18 mg/dL (7-20) 13 mg/dL (7-20) Creatinine 0.8 mg/dL (0.6-1.0) 0.5 mg/dL (0.6-1.0) Estimated GFR (Cockcroft-Gault) 73.4 126.3 BUN/Creatinine Ratio 23 (6-20) Glucose Level 114 mg/dL (70-99) 101 mg/dL (70-99) Calcium Level 9.3 mg/dL (8.5-10.1) 9.0 mg/dL (8.5-10.1) Total Bilirubin 0.2 mg/dL (0.2-1.0) Aspartate Amino Transf (AST/SGOT) 20 U/L (15-37) Alanine Aminotransferase (ALT/SGPT) 28 U/L (14-59) Alkaline Phosphatase 87 U/L (46-116) Troponin I Quantitative < 0.017 ng/mL (0.000-0.055) < 0.017 ng/mL (0.000-0.055) < 0.017 ng/mL (0.000-0.055) Total Protein 7.7 g/dL (6.4-8.2) Albumin 3.4 g/dL (3.4-5.0) Albumin/Globulin Ratio 0.8 (1.0-1.7) Laboratory Tests Test 06/22/17 19:40 06/23/17 01:10 06/23/17 04:15 White Blood Count 11.7 x10^3/uL (4.0-11.0) 9.0 x10^3/uL (4.0-11.0) Red Blood Count 4.86 x10^6/uL (3.50-5.40) 4.58 x10^6/uL (3.50-5.40) Hemoglobin 13.9 g/dL (12.0-15.5) 13.3 g/dL (12.0-15.5) Hematocrit 41.8 % (36.0-47.0) 39.7 % (36.0-47.0) Mean Corpuscular Volume 86 fL (79-100) 87 fL (79-100) Mean Corpuscular Hemoglobin 29 pg (25-35) 29 pg (25-35) Mean Corpuscular Hemoglobin Concent 33 g/dL (31-37) 33 g/dL (31-37) Red Cell Distribution Width 14.2 % (11.5-14.5) 13.9 % (11.5-14.5) Platelet Count 365 x10^3/uL (140-400) 309 x10^3/uL (140-400) Neutrophils (%) (Auto) 56 % (31-73) 54 % (31-73) Lymphocytes (%) (Auto) 34 % (24-48) 37 % (24-48) Monocytes (%) (Auto) 7 % (0-9) 7 % (0-9) Eosinophils (%) (Auto) 2 % (0-3) 2 % (0-3) Basophils (%) (Auto) 1 % (0-3) 0 % (0-3) Neutrophils # (Auto) 6.6 x10^3uL (1.8-7.7) 4.8 x10^3uL (1.8-7.7) Lymphocytes # (Auto) 4.0 x10^3/uL (1.0-4.8) 3.4 x10^3/uL (1.0-4.8) Monocytes # (Auto) 0.8 x10^3/uL (0.0-1.1) 0.6 x10^3/uL (0.0-1.1) Eosinophils # (Auto) 0.2 x10^3/uL (0.0-0.7) 0.2 x10^3/uL (0.0-0.7) Basophils # (Auto) 0.1 x10^3/uL (0.0-0.2) 0.0 x10^3/uL (0.0-0.2) Sodium Level 143 mmol/L (136-145) 143 mmol/L (136-145) Potassium Level 3.7 mmol/L (3.5-5.1) 4.3 mmol/L (3.5-5.1) Chloride Level 104 mmol/L (98-107) 106 mmol/L (98-107) Carbon Dioxide Level 33 mmol/L (21-32) 30 mmol/L (21-32) Anion Gap 6 (6-14) 7 (6-14) Blood Urea Nitrogen 18 mg/dL (7-20) 13 mg/dL (7-20) Creatinine 0.8 mg/dL (0.6-1.0) 0.5 mg/dL (0.6-1.0) Estimated GFR (Cockcroft-Gault) 73.4 126.3 BUN/Creatinine Ratio 23 (6-20) Glucose Level 114 mg/dL (70-99) 101 mg/dL (70-99) Calcium Level 9.3 mg/dL (8.5-10.1) 9.0 mg/dL (8.5-10.1) Total Bilirubin 0.2 mg/dL (0.2-1.0) Aspartate Amino Transf (AST/SGOT) 20 U/L (15-37) Alanine Aminotransferase (ALT/SGPT) 28 U/L (14-59) Alkaline Phosphatase 87 U/L (46-116) Troponin I Quantitative < 0.017 ng/mL (0.000-0.055) < 0.017 ng/mL (0.000-0.055) < 0.017 ng/mL (0.000-0.055) Total Protein 7.7 g/dL (6.4-8.2) Albumin 3.4 g/dL (3.4-5.0) Albumin/Globulin Ratio 0.8 (1.0-1.7) Medications Current Medications Aspirin (Children'S Aspirin) 324 mg 1X ONCE PO Last administered on 20:07; Start 06/22/17 at 20:00; Stop 06/22/17 at 20:01; Status DC Sodium Chloride 1,000 ml @ 1,000 mls/hr 1X ONCE IV Last administered on 06/22 20:07; Start 06/22/17 at 20:00; Stop 06/22/17 at 20:59; Status DC Morphine Sulfate 4 mg PRN Q2HR PRN IV SEVERE PAIN; Start 06/22/17 at 21:45; Stop 06/23/17 at 21:44 Acetaminophen (Tylenol) 650 mg PRN Q4HRS PRN PO FEVER; Start 06/22/17 at 21:45 ; Stop 06/23/17 at 21:44 Nitroglycerin (Nitrostat) 0.4 mg PRN Q5MIN PRN SL CHEST PAIN; Start 06/22/17 at 21:45; Stop 06/23/17 at 21:44 Albuterol/ Ipratropium (Duoneb) 3 ml RTBID NEB Last administered on 06/23/17t 07:08; Start 06/23/17 at 08:00; Stop 06/23/17 at 10:00; Status DC Info (Do NOT chart on this placeholder) 1 each 1X ONCE MC ; Start 06/23/17 at 02:00; Stop 06/23/17 at 02:01; Status UNV Influenza Virus Vaccine Quadrival (Fluarix Quad [id number] Syringe) 0.5 ml ONCE ONCE VAX IM ; Start 06/23/17 at 09:00; Stop 06/23/17 at 09:01; Status DC Active Scripts Active Reported Amlodipine Besylate 5 Mg Tablet 5 Mg PO DAILY Metoprolol Succinate 50 Mg Tab.er.24h 100 Mg PO DAILY Fluoxetine Hcl 20 Mg Capsule 1 Cap PO DAILY Lisinopril-Hctz 20-12.5 Mg Tab (Lisinopril/Hydrochlorothiazide) 1 Each Tablet 1 Tab PO DAILY Vitals/I & O Vital Sign - Last 24 Hours 06/22/17 06/22/17 06/22/17 06/22/17 19:40 20:01 20:31 20:38 Temp 98.3 98.3 Pulse 65 62 60 61 Resp 16 26 17 B/P (MAP) 182/83 (116) 172/87 (115) 158/69 (98) 158/70 (99) Pulse Ox 99 96 99 O2 Delivery Room Air Room Air Room Air 06/22/17 06/22/17 06/22/17 06/23/17 21:08 21:47 23:00 00:13 Temp 97.9 97.9 Pulse 59 58 58 Resp 26 20 B/P (MAP) 145/59 (87) 150/70 (96) 169/74 (105) Pulse Ox 98 99 O2 Delivery Room Air Room Air Room Air Room Air 06/23/17 06/23/17 06/23/17 06/23/17 03:04 07:00 07:09 08:00 Temp 98.3 98.0 98.3 98.0 Pulse 56 61 Resp 18 18 B/P (MAP) 135/69 (91) 156/72 (100) Pulse Ox 96 95 98 O2 Delivery Room Air Room Air Room Air Room Air JENISE HUANG III DO Jun 23, 2017 12:29
[2017-06-23 15:00] VITALS: BP 162/70
--- NOTE | 2017-06-23 17:33 | PDOC ---
PULMONARY PROGRESS NOTES Vitals Vital Signs Date Time Temp Pulse Resp B/P (MAP) Pulse Ox O2 Delivery O2 Flow Rate FiO2 06/23/17 15:00 98.1 72 18 162/70 (100) 97 Room Air 98.1 Lungs: Clear Labs Laboratory Tests Test 06/22/17 19:40 06/23/17 01:10 06/23/17 04:15 White Blood Count 11.7 x10^3/uL (4.0-11.0) 9.0 x10^3/uL (4.0-11.0) Red Blood Count 4.86 x10^6/uL (3.50-5.40) 4.58 x10^6/uL (3.50-5.40) Hemoglobin 13.9 g/dL (12.0-15.5) 13.3 g/dL (12.0-15.5) Hematocrit 41.8 % (36.0-47.0) 39.7 % (36.0-47.0) Mean Corpuscular Volume 86 fL (79-100) 87 fL (79-100) Mean Corpuscular Hemoglobin 29 pg (25-35) 29 pg (25-35) Mean Corpuscular Hemoglobin Concent 33 g/dL (31-37) 33 g/dL (31-37) Red Cell Distribution Width 14.2 % (11.5-14.5) 13.9 % (11.5-14.5) Platelet Count 365 x10^3/uL (140-400) 309 x10^3/uL (140-400) Neutrophils (%) (Auto) 56 % (31-73) 54 % (31-73) Lymphocytes (%) (Auto) 34 % (24-48) 37 % (24-48) Monocytes (%) (Auto) 7 % (0-9) 7 % (0-9) Eosinophils (%) (Auto) 2 % (0-3) 2 % (0-3) Basophils (%) (Auto) 1 % (0-3) 0 % (0-3) Neutrophils # (Auto) 6.6 x10^3uL (1.8-7.7) 4.8 x10^3uL (1.8-7.7) Lymphocytes # (Auto) 4.0 x10^3/uL (1.0-4.8) 3.4 x10^3/uL (1.0-4.8) Monocytes # (Auto) 0.8 x10^3/uL (0.0-1.1) 0.6 x10^3/uL (0.0-1.1) Eosinophils # (Auto) 0.2 x10^3/uL (0.0-0.7) 0.2 x10^3/uL (0.0-0.7) Basophils # (Auto) 0.1 x10^3/uL (0.0-0.2) 0.0 x10^3/uL (0.0-0.2) Sodium Level 143 mmol/L (136-145) 143 mmol/L (136-145) Potassium Level 3.7 mmol/L (3.5-5.1) 4.3 mmol/L (3.5-5.1) Chloride Level 104 mmol/L (98-107) 106 mmol/L (98-107) Carbon Dioxide Level 33 mmol/L (21-32) 30 mmol/L (21-32) Anion Gap 6 (6-14) 7 (6-14) Blood Urea Nitrogen 18 mg/dL (7-20) 13 mg/dL (7-20) Creatinine 0.8 mg/dL (0.6-1.0) 0.5 mg/dL (0.6-1.0) Estimated GFR (Cockcroft-Gault) 73.4 126.3 BUN/Creatinine Ratio 23 (6-20) Glucose Level 114 mg/dL (70-99) 101 mg/dL (70-99) Calcium Level 9.3 mg/dL (8.5-10.1) 9.0 mg/dL (8.5-10.1) Total Bilirubin 0.2 mg/dL (0.2-1.0) Aspartate Amino Transf (AST/SGOT) 20 U/L (15-37) Alanine Aminotransferase (ALT/SGPT) 28 U/L (14-59) Alkaline Phosphatase 87 U/L (46-116) Troponin I Quantitative < 0.017 ng/mL (0.000-0.055) < 0.017 ng/mL (0.000-0.055) < 0.017 ng/mL (0.000-0.055) Total Protein 7.7 g/dL (6.4-8.2) Albumin 3.4 g/dL (3.4-5.0) Albumin/Globulin Ratio 0.8 (1.0-1.7) Laboratory Tests Test 06/22/17 19:40 06/23/17 01:10 06/23/17 04:15 White Blood Count 11.7 x10^3/uL (4.0-11.0) 9.0 x10^3/uL (4.0-11.0) Red Blood Count 4.86 x10^6/uL (3.50-5.40) 4.58 x10^6/uL (3.50-5.40) Hemoglobin 13.9 g/dL (12.0-15.5) 13.3 g/dL (12.0-15.5) Hematocrit 41.8 % (36.0-47.0) 39.7 % (36.0-47.0) Mean Corpuscular Volume 86 fL (79-100) 87 fL (79-100) Mean Corpuscular Hemoglobin 29 pg (25-35) 29 pg (25-35) Mean Corpuscular Hemoglobin Concent 33 g/dL (31-37) 33 g/dL (31-37) Red Cell Distribution Width 14.2 % (11.5-14.5) 13.9 % (11.5-14.5) Platelet Count 365 x10^3/uL (140-400) 309 x10^3/uL (140-400) Neutrophils (%) (Auto) 56 % (31-73) 54 % (31-73) Lymphocytes (%) (Auto) 34 % (24-48) 37 % (24-48) Monocytes (%) (Auto) 7 % (0-9) 7 % (0-9) Eosinophils (%) (Auto) 2 % (0-3) 2 % (0-3) Basophils (%) (Auto) 1 % (0-3) 0 % (0-3) Neutrophils # (Auto) 6.6 x10^3uL (1.8-7.7) 4.8 x10^3uL (1.8-7.7) Lymphocytes # (Auto) 4.0 x10^3/uL (1.0-4.8) 3.4 x10^3/uL (1.0-4.8) Monocytes # (Auto) 0.8 x10^3/uL (0.0-1.1) 0.6 x10^3/uL (0.0-1.1) Eosinophils # (Auto) 0.2 x10^3/uL (0.0-0.7) 0.2 x10^3/uL (0.0-0.7) Basophils # (Auto) 0.1 x10^3/uL (0.0-0.2) 0.0 x10^3/uL (0.0-0.2) Sodium Level 143 mmol/L (136-145) 143 mmol/L (136-145) Potassium Level 3.7 mmol/L (3.5-5.1) 4.3 mmol/L (3.5-5.1) Chloride Level 104 mmol/L (98-107) 106 mmol/L (98-107) Carbon Dioxide Level 33 mmol/L (21-32) 30 mmol/L (21-32) Anion Gap 6 (6-14) 7 (6-14) Blood Urea Nitrogen 18 mg/dL (7-20) 13 mg/dL (7-20) Creatinine 0.8 mg/dL (0.6-1.0) 0.5 mg/dL (0.6-1.0) Estimated GFR (Cockcroft-Gault) 73.4 126.3 BUN/Creatinine Ratio 23 (6-20) Glucose Level 114 mg/dL (70-99) 101 mg/dL (70-99) Calcium Level 9.3 mg/dL (8.5-10.1) 9.0 mg/dL (8.5-10.1) Total Bilirubin 0.2 mg/dL (0.2-1.0) Aspartate Amino Transf (AST/SGOT) 20 U/L (15-37) Alanine Aminotransferase (ALT/SGPT) 28 U/L (14-59) Alkaline Phosphatase 87 U/L (46-116) Troponin I Quantitative < 0.017 ng/mL (0.000-0.055) < 0.017 ng/mL (0.000-0.055) < 0.017 ng/mL (0.000-0.055) Total Protein 7.7 g/dL (6.4-8.2) Albumin 3.4 g/dL (3.4-5.0) Albumin/Globulin Ratio 0.8 (1.0-1.7) Medications Active Scripts Medications Dose Route/Sig Max Daily Dose Days Date Category Amlodipine Besylate 5 Mg Tablet 5 Mg PO DAILY 06/23/17 Reported Metoprolol Succinate 50 Mg Tab.er.24h 100 Mg PO DAILY 06/23/17 Reported Fluoxetine Hcl 20 Mg Capsule 1 Cap PO DAILY 07/31/16 Reported Lisinopril-Hctz 20-12.5 Mg Tab (Lisinopril/Hydrochlorothiazide) 1 Each Tablet 1 Tab PO DAILY 07/31/16 Reported Impression . note dictated progressive dyspnea sec to chf not pulmonary in origin cardiac work up in progress thanks INDIGO VENEGAS MD Jun 23, 2017 17:33
[2017-06-23 19:52] VITALS: BP 155/69
--- NOTE | 2017-06-23 22:06 | CONS ---
DATE OF CONSULTATION: 06/23/2017 ATTENDING PHYSICIAN: Dr. Frieda Garcia. REASON FOR CONSULTATION: The patient is seen in pulmonary consultation at the request of Dr. Garcia for increasing shortness of breath. HISTORY OF PRESENT ILLNESS: The patient is a 61-year-old that presented mainly with chest pain and increasing shortness of breath. Over the last several months, she had chest pain with exertion that improved with rest. She has a cough, mostly nonproductive. She denies fever, chills or night sweats. Chest x-ray was obtained. There was evidence of bilateral pulmonary infiltrates compatible with CHF. I was asked to see her in consultation. The patient used to smoke, quit many years ago, smoked for about 20 years. PAST MEDICAL HISTORY: COPD, hypertension, previous coronary artery disease which was described as mild. FAMILY HISTORY: Coronary artery disease. ALLERGIES: TO IBUPROFEN CONTRAST DYE. CURRENT MEDICATIONS: List was reviewed. PHYSICAL EXAMINATION: GENERAL: The patient was in no respiratory distress. VITAL SIGNS: Stable. O2 saturation currently on room air, greater than 95%. HEENT: Eyes, the sclerae were nonicteric. NECK: Jugular venous distention was not elevated. No lymphadenopathy. CHEST: Full expansion. LUNGS: Adequate airway flow. No wheezes, rales or rhonchi. CARDIOVASCULAR: Regular rate and rhythm with S1, S2, no S3. ABDOMEN: Soft, nontender, nondistended. EXTREMITIES: No clubbing, cyanosis or edema. LABORATORY DATA: Reviewed. White count was normal. Hemoglobin and hematocrit noted. BNP was not obtained. Electrolytes were noted. Troponin was normal. IMPRESSION: 1. Progressive dyspnea secondary to acute systolic heart failure. 2. Acute abnormal x-ray compatible with heart failure. 3. Chronic obstructive pulmonary disease with no acute exacerbation. 4. Tobacco dependence in remission. PLAN: 1. Follow cardiology input. 2. No further pulmonary workup needed. I suspect most of her symptoms are cardiac in origin. I do appreciate the privilege in sharing the patient's care. INDIGO VENEGAS MD DR: HILLARY/riley JOB#: [id number] / [id number]
[2017-06-23 23:14] VITALS: BP 153/70
[2017-06-24 02:38] VITALS: BP 150/71
[2017-06-24 03:57] LABS: BASO % 1 % (0-3); EOS % 2 % (0-3); HEMATOCRIT 41.4 % (36.0-47.0); HEMOGLOBIN 13.8 g/dL (12.0-15.5); LYMPH # 2.9 x10^3/uL (1.0-4.8); LYMPH % 34 % (24-48); MEAN CORPUSCULAR HEMOGLOBIN 29 pg (25-35); MEAN CORPUSCULAR HGB CONC 33 g/dL (31-37); MEAN CORPUSCULAR VOLUME 86 fL (79-100); MONO % 7 % (0-9); NEUT % 56 % (31-73); PLATELET COUNT 309 x10^3/uL (140-400); RED BLOOD COUNT 4.83 x10^6/uL (3.50-5.40); RED CELL DISTRIBUTION WIDTH 13.9 % (11.5-14.5); WHITE BLOOD COUNT 8.6 x10^3/uL (4.0-11.0)
[2017-06-24 04:22] LABS: CALCIUM 8.9 mg/dL (8.5-10.1); CREATININE 0.7 mg/dL (0.6-1.0); GFR 85.6; POTASSIUM 4.2 mmol/L (3.5-5.1)
[2017-06-24 06:35] LABS: CHOLESTEROL/HDL RATIO 5.5
[2017-06-24 07:00] VITALS: BP 144/75
[2017-06-24 10:55] VITALS: BP 138/62
--- NOTE | 2017-06-24 13:11 | PDOC ---
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 Pt speaks minimal french and her daughter in law served as press tender smoke signal. She was admitted from ER with acute, sudden onset chest pain that started at rest ( sharp pain w/ pressure to left chest). Patient is resting comfortably in bed today. 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 Patient's daughter in law said that the patient has "occasional trouble of catching breath," but other than that she has no other complains. No edema or pain present on lower extremities. She is followed by cardiology and pulmonology. Patient is waiting for Echo. Patient has an allergy to IV contrast dye. Vitals Vitals Vital Signs Date Time Temp Pulse Resp B/P (MAP) Pulse Ox O2 Delivery O2 Flow Rate FiO2 06/24/17 10:55 97.8 69 18 138/62 (87) 97 Room Air 97.8 Physical Exam General: Alert, Cooperative, No acute distress Heart: Regular rate Lungs: Clear Abdomen: Normal bowel sounds, Soft Extremities: No cyanosis, No edema Skin: No breakdown, No significant lesion Labs LABS Laboratory Tests Test 06/24/17 03:39 White Blood Count 8.6 x10^3/uL (4.0-11.0) Red Blood Count 4.83 x10^6/uL (3.50-5.40) Hemoglobin 13.8 g/dL (12.0-15.5) Hematocrit 41.4 % (36.0-47.0) Mean Corpuscular Volume 86 fL (79-100) Mean Corpuscular Hemoglobin 29 pg (25-35) Mean Corpuscular Hemoglobin Concent 33 g/dL (31-37) Red Cell Distribution Width 13.9 % (11.5-14.5) Platelet Count 309 x10^3/uL (140-400) Neutrophils (%) (Auto) 56 % (31-73) Lymphocytes (%) (Auto) 34 % (24-48) Monocytes (%) (Auto) 7 % (0-9) Eosinophils (%) (Auto) 2 % (0-3) Basophils (%) (Auto) 1 % (0-3) Neutrophils # (Auto) 4.8 x10^3uL (1.8-7.7) Lymphocytes # (Auto) 2.9 x10^3/uL (1.0-4.8) Monocytes # (Auto) 0.6 x10^3/uL (0.0-1.1) Eosinophils # (Auto) 0.2 x10^3/uL (0.0-0.7) Basophils # (Auto) 0.0 x10^3/uL (0.0-0.2) Sodium Level 141 mmol/L (136-145) Potassium Level 4.2 mmol/L (3.5-5.1) Chloride Level 105 mmol/L (98-107) Carbon Dioxide Level 30 mmol/L (21-32) Anion Gap 6 (6-14) Blood Urea Nitrogen 16 mg/dL (7-20) Creatinine 0.7 mg/dL (0.6-1.0) Estimated GFR (Cockcroft-Gault) 85.6 Glucose Level 104 mg/dL (70-99) Calcium Level 8.9 mg/dL (8.5-10.1) Triglycerides Level 130 mg/dL (0-150) Cholesterol Level 216 mg/dL (0-200) LDL Cholesterol, Calculated 151 mg/dL (0-100) VLDL Cholesterol, Calculated 26 mg/dL (0-40) Non-HDL Cholesterol Calculated 177 mg/dL (0-129) HDL Cholesterol 39 mg/dL (40-60) Cholesterol/HDL Ratio 5.5 Review of Systems Review of Systems fatigue and weakness Assessment and Plan Assessmemt and Plan Problems Medical Problems: (1) Chest pain Status: Acute Assessment: Chest pain COPD HTN Mild coronary artery disease 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 Labs Laboratory Tests Test 06/22/17 19:40 06/23/17 01:10 06/23/17 04:15 06/24/17 03:39 White Blood Count 11.7 x10^3/uL (4.0-11.0) 9.0 x10^3/uL (4.0-11.0) 8.6 x10^3/uL (4.0-11.0) Red Blood Count 4.86 x10^6/uL (3.50-5.40) 4.58 x10^6/uL (3.50-5.40) 4.83 x10^6/uL (3.50-5.40) Hemoglobin 13.9 g/dL (12.0-15.5) 13.3 g/dL (12.0-15.5) 13.8 g/dL (12.0-15.5) Hematocrit 41.8 % (36.0-47.0) 39.7 % (36.0-47.0) 41.4 % (36.0-47.0) Mean Corpuscular Volume 86 fL (79-100) 87 fL (79-100) 86 fL (79-100) Mean Corpuscular Hemoglobin 29 pg (25-35) 29 pg (25-35) 29 pg (25-35) Mean Corpuscular Hemoglobin Concent 33 g/dL (31-37) 33 g/dL (31-37) 33 g/dL (31-37) Red Cell Distribution Width 14.2 % (11.5-14.5) 13.9 % (11.5-14.5) 13.9 % (11.5-14.5) Platelet Count 365 x10^3/uL (140-400) 309 x10^3/uL (140-400) 309 x10^3/uL (140-400) Neutrophils (%) (Auto) 56 % (31-73) 54 % (31-73) 56 % (31-73) Lymphocytes (%) (Auto) 34 % (24-48) 37 % (24-48) 34 % (24-48) Monocytes (%) (Auto) 7 % (0-9) 7 % (0-9) 7 % (0-9) Eosinophils (%) (Auto) 2 % (0-3) 2 % (0-3) 2 % (0-3) Basophils (%) (Auto) 1 % (0-3) 0 % (0-3) 1 % (0-3) Neutrophils # (Auto) 6.6 x10^3uL (1.8-7.7) 4.8 x10^3uL (1.8-7.7) 4.8 x10^3uL (1.8-7.7) Lymphocytes # (Auto) 4.0 x10^3/uL (1.0-4.8) 3.4 x10^3/uL (1.0-4.8) 2.9 x10^3/uL (1.0-4.8) Monocytes # (Auto) 0.8 x10^3/uL (0.0-1.1) 0.6 x10^3/uL (0.0-1.1) 0.6 x10^3/uL (0.0-1.1) Eosinophils # (Auto) 0.2 x10^3/uL (0.0-0.7) 0.2 x10^3/uL (0.0-0.7) 0.2 x10^3/uL (0.0-0.7) Basophils # (Auto) 0.1 x10^3/uL (0.0-0.2) 0.0 x10^3/uL (0.0-0.2) 0.0 x10^3/uL (0.0-0.2) Sodium Level 143 mmol/L (136-145) 143 mmol/L (136-145) 141 mmol/L (136-145) Potassium Level 3.7 mmol/L (3.5-5.1) 4.3 mmol/L (3.5-5.1) 4.2 mmol/L (3.5-5.1) Chloride Level 104 mmol/L (98-107) 106 mmol/L (98-107) 105 mmol/L (98-107) Carbon Dioxide Level 33 mmol/L (21-32) 30 mmol/L (21-32) 30 mmol/L (21-32) Anion Gap 6 (6-14) 7 (6-14) 6 (6-14) Blood Urea Nitrogen 18 mg/dL (7-20) 13 mg/dL (7-20) 16 mg/dL (7-20) Creatinine 0.8 mg/dL (0.6-1.0) 0.5 mg/dL (0.6-1.0) 0.7 mg/dL (0.6-1.0) Estimated GFR (Cockcroft-Gault) 73.4 126.3 85.6 BUN/Creatinine Ratio 23 (6-20) Glucose Level 114 mg/dL (70-99) 101 mg/dL (70-99) 104 mg/dL (70-99) Calcium Level 9.3 mg/dL (8.5-10.1) 9.0 mg/dL (8.5-10.1) 8.9 mg/dL (8.5-10.1) Total Bilirubin 0.2 mg/dL (0.2-1.0) Aspartate Amino Transf (AST/SGOT) 20 U/L (15-37) Alanine Aminotransferase (ALT/SGPT) 28 U/L (14-59) Alkaline Phosphatase 87 U/L (46-116) Troponin I Quantitative < 0.017 ng/mL (0.000-0.055) < 0.017 ng/mL (0.000-0.055) < 0.017 ng/mL (0.000-0.055) Total Protein 7.7 g/dL (6.4-8.2) Albumin 3.4 g/dL (3.4-5.0) Albumin/Globulin Ratio 0.8 (1.0-1.7) Triglycerides Level 130 mg/dL (0-150) Cholesterol Level 216 mg/dL (0-200) LDL Cholesterol, Calculated 151 mg/dL (0-100) VLDL Cholesterol, Calculated 26 mg/dL (0-40) Non-HDL Cholesterol Calculated 177 mg/dL (0-129) HDL Cholesterol 39 mg/dL (40-60) Cholesterol/HDL Ratio 5.5 Laboratory Tests Test 06/24/17 03:39 White Blood Count 8.6 x10^3/uL (4.0-11.0) Red Blood Count 4.83 x10^6/uL (3.50-5.40) Hemoglobin 13.8 g/dL (12.0-15.5) Hematocrit 41.4 % (36.0-47.0) Mean Corpuscular Volume 86 fL (79-100) Mean Corpuscular Hemoglobin 29 pg (25-35) Mean Corpuscular Hemoglobin Concent 33 g/dL (31-37) Red Cell Distribution Width 13.9 % (11.5-14.5) Platelet Count 309 x10^3/uL (140-400) Neutrophils (%) (Auto) 56 % (31-73) Lymphocytes (%) (Auto) 34 % (24-48) Monocytes (%) (Auto) 7 % (0-9) Eosinophils (%) (Auto) 2 % (0-3) Basophils (%) (Auto) 1 % (0-3) Neutrophils # (Auto) 4.8 x10^3uL (1.8-7.7) Lymphocytes # (Auto) 2.9 x10^3/uL (1.0-4.8) Monocytes # (Auto) 0.6 x10^3/uL (0.0-1.1) Eosinophils # (Auto) 0.2 x10^3/uL (0.0-0.7) Basophils # (Auto) 0.0 x10^3/uL (0.0-0.2) Sodium Level 141 mmol/L (136-145) Potassium Level 4.2 mmol/L (3.5-5.1) Chloride Level 105 mmol/L (98-107) Carbon Dioxide Level 30 mmol/L (21-32) Anion Gap 6 (6-14) Blood Urea Nitrogen 16 mg/dL (7-20) Creatinine 0.7 mg/dL (0.6-1.0) Estimated GFR (Cockcroft-Gault) 85.6 Glucose Level 104 mg/dL (70-99) Calcium Level 8.9 mg/dL (8.5-10.1) Triglycerides Level 130 mg/dL (0-150) Cholesterol Level 216 mg/dL (0-200) LDL Cholesterol, Calculated 151 mg/dL (0-100) VLDL Cholesterol, Calculated 26 mg/dL (0-40) Non-HDL Cholesterol Calculated 177 mg/dL (0-129) HDL Cholesterol 39 mg/dL (40-60) Cholesterol/HDL Ratio 5.5 Medications Current Medications Aspirin (Children'S Aspirin) 324 mg 1X ONCE PO Last administered on 20:07; Start 06/22/17 at 20:00; Stop 06/22/17 at 20:01; Status DC Sodium Chloride 1,000 ml @ 1,000 mls/hr 1X ONCE IV Last administered on 06/22 20:07; Start 06/22/17 at 20:00; Stop 06/22/17 at 20:59; Status DC Morphine Sulfate 4 mg PRN Q2HR PRN IV SEVERE PAIN; Start 06/22/17 at 21:45; Stop 06/23/17 at 21:44; Status DC Acetaminophen (Tylenol) 650 mg PRN Q4HRS PRN PO FEVER Last administered on 14:23; Start 06/22/17 at 21:45; Stop 06/23/17 at 21:44; Status DC Nitroglycerin (Nitrostat) 0.4 mg PRN Q5MIN PRN SL CHEST PAIN; Start 06/22/17 at 21:45; Stop 06/23/17 at 21:44; Status DC Albuterol/ Ipratropium (Duoneb) 3 ml RTBID NEB Last administered on 06/23/17 07:08; Start 06/23/17 at 08:00; Stop 06/23/17 at 10:00; Status DC Info (Do NOT chart on this placeholder) 1 each 1X ONCE MC ; Start 06/23/17 at 02:00; Stop 06/23/17 at 02:01; Status UNV Influenza Virus Vaccine Quadrival (Fluarix Quad [id number] Syringe) 0.5 ml ONCE ONCE VAX IM Last administered on 06/23/17 17:35; Start 06/23/17 at 09:00; Stop 06/23/17 at 09:01; Status DC Active Scripts Active Reported Amlodipine Besylate 5 Mg Tablet 5 Mg PO DAILY Metoprolol Succinate 50 Mg Tab.er.24h 100 Mg PO DAILY Fluoxetine Hcl 20 Mg Capsule 1 Cap PO DAILY Lisinopril-Hctz 20-12.5 Mg Tab (Lisinopril/Hydrochlorothiazide) 1 Each Tablet 1 Tab PO DAILY Vitals/I & O Vital Sign - Last 24 Hours 06/23/17 06/23/17 06/23/17 06/23/17 15:00 19:52 20:00 23:14 Temp 98.1 98.2 98.4 98.1 98.2 98.4 Pulse 72 69 58 Resp 18 18 18 B/P (MAP) 162/70 (100) 155/69 (97) 153/70 (97) Pulse Ox 97 97 97 O2 Delivery Room Air Room Air Room Air Room Air 06/24/17 06/24/17 06/24/17 06/24/17 02:38 07:00 08:00 10:55 Temp 98.4 97.9 97.8 98.4 97.9 97.8 Pulse 62 72 69 Resp 20 18 18 B/P (MAP) 150/71 (97) 144/75 (98) 138/62 (87) Pulse Ox 96 96 97 O2 Delivery Room Air Room Air Room Air Room Air Intake and Output 06/24/17 06/24/17 06/25/17 15:00 23:00 07:00 Intake Total 250 ml Balance 250 ml JENISE HUANG III DO Jun 24, 2017 13:11
[2017-06-24 15:00] VITALS: BP 136/73
--- NOTE | 2017-06-24 17:39 | CARD ---
APPROVED REPORT EXAM: Two-dimensional and M-mode echocardiogram with Doppler and color Doppler. Other Information Quality : Average INDICATION Chest pressure HX OF AORTIC SUVALVULAR MEMBRANE 2D DIMENSIONS Left Atrium(2D)3.8 (1.6-4.0cm)IVSd1.4 (0.7-1.1cm) Aortic Root(2D)2.8 (2.0-3.7cm)LVDd4.0 (3.9-5.9cm) LVOT Diameter2.0 (1.8-2.4cm)PWd1.4 (0.7-1.1cm) LVDs2.6 (2.5-4.0cm)FS (%) 33.8 % SV43.5 mlLVEF(%)60.0 (>50%) Aortic Valve AoV Peak Dada.221.6cm/sAoV VTI51.7cm AO Peak GR.19.6mmHgLVOT Peak Dada.147.1cm/s AO Mean GR.10mmHgAVA (VMAX)2.04cm2 GLEN (VTI)2.10cm2 Mitral Valve MV E Tkftgizt86.2cm/sMV DECEL [id number] MV A Vcaurlai18.2cm/sE/A Ratio1.2 Tricuspid Valve TR P. [id number]/sRAP [id number] TR Peak Gr.[id number] LEFT VENTRICLE The left ventricle is normal size. There is mild to moderate concentric left ventricular hypertrophy. Left ventricle systolic function is normal. The Ejection Fraction is 60%. There is normal LV segment al wall motion. Transmitral Doppler flow pattern is Grade I-abnormal relaxation pattern. RIGHT VENTRICLE The right ventricle is normal size. The right ventricular systolic function is normal. ATRIA The left atrium size is normal. The right atrium size is normal. The interatrial septum is intact wit h no evidence for an atrial septal defect or patent foramen ovale as noted on 2-D or Doppler imaging. AORTIC VALVE The aortic valve is mildly thickened but opens well. Ther is some echogenic structur under the aortic valve but it could not be seen clearly in any of the views Doppler and Color Flow revealed no signif icant aortic regurgitation. There is no significant aortic valvular stenosis. MITRAL VALVE The mitral valve is mildly calcified but opens well. There is no evidence of mitral valve prolapse. T here is no mitral valve stenosis. Doppler and Color-flow revealed trace mitral regurgitation. TRICUSPID VALVE The tricuspid valve is normal in structure Doppler and Color Flow revealed trace tricuspid regurgitat ion. There is no pulmonary hypertension. There is no tricuspid valve stenosis. PULMONIC VALVE The pulmonary valve is normal in structure and function. Doppler and Color Flow revealed no pulmonic valvular regurgitation. There is no pulmonic valvular stenosis. GREAT VESSELS The aortic root is normal in size. The ascending aorta is normal in size. The IVC is normal in size a nd collapses >50% with inspiration. PERICARDIAL EFFUSION There is no pleural effusion. There is a very small pericardial effusion. Critical Notification Critical Value: No <Conclusion> Left ventricle systolic function is normal. The Ejection Fraction is 60%. There is mild to moderate concentric left ventricular hypertrophy. Transmitral Doppler flow pattern is Grade I-abnormal relaxation pattern. The left atrium size is normal. The right atrium size is normal. The aortic valve is mildly thickened but opens well. Ther is some echogenic structur under the aortic valve but it could not be seen clearly in any of the views Doppler and Color Flow revealed no significant aortic regurgitation. There is no significant aortic valvular stenosis. The mitral valve is mildly calcified but opens well. Doppler and Color-flow revealed trace mitral regurgitation. Doppler and Color Flow revealed trace tricuspid regurgitation. There is no pulmonary hypertension. The pulmonary valve is normal in structure and function. There is a very small pericardial effusion.
--- NOTE | 2017-06-24 18:26 | PDOC ---
PROGRESS NOTES Subjective Subjective No new complaints, no chest pain. The echocardiogram showed: Left ventricle systolic function is normal. The Ejection Fraction is 60%. There is mild to moderate concentric left ventricular hypertrophy. Transmitral Doppler flow pattern is Grade I-abnormal relaxation pattern. The left atrium size is normal. The right atrium size is normal. The aortic valve is mildly thickened but opens well. Ther is some echogenic structure under the aortic valve but it could not be seen clearly in any of the views Doppler and Color Flow revealed no significant aortic regurgitation. There is no significant aortic valvular stenosis. The mitral valve is mildly calcified but opens well. Doppler and Color-flow revealed trace mitral regurgitation. Doppler and Color Flow revealed trace tricuspid regurgitation. There is no pulmonary hypertension. The pulmonary valve is normal in structure and function. There is a very small pericardial effusion. Objective Objective Vital Signs Date Time Temp Pulse Resp B/P (MAP) Pulse Ox O2 Delivery O2 Flow Rate FiO2 06/24/17 15:00 97.6 68 18 136/73 (94) 97 Room Air 97.6 Intake and Output 06/25/17 07:00 Intake Total 1600 ml Output Total 625 ml Balance 975 ml Intake Oral 1600 ml Output Urine Total 625 ml Physical Exam Physical Exam No significant change in cardiac exam Assessment Assessment The pt's echo shows a normal LV EF of 60% and the congenital subvalvular anormality of the aortic valve could not be evaluated. I discussed this with the pt and some of the family members and it was decided to do a CUCA tomorrow. The pt agrees with this. Problems Medical Problems: (1) Chest pain Status: Acute Comment Review of Relevant I have reviewed the following items edu (where applicable) has been applied. Labs Laboratory Tests Test 06/22/17 19:40 06/23/17 01:10 06/23/17 04:15 06/24/17 03:39 White Blood Count 11.7 x10^3/uL (4.0-11.0) 9.0 x10^3/uL (4.0-11.0) 8.6 x10^3/uL (4.0-11.0) Red Blood Count 4.86 x10^6/uL (3.50-5.40) 4.58 x10^6/uL (3.50-5.40) 4.83 x10^6/uL (3.50-5.40) Hemoglobin 13.9 g/dL (12.0-15.5) 13.3 g/dL (12.0-15.5) 13.8 g/dL (12.0-15.5) Hematocrit 41.8 % (36.0-47.0) 39.7 % (36.0-47.0) 41.4 % (36.0-47.0) Mean Corpuscular Volume 86 fL (79-100) 87 fL (79-100) 86 fL (79-100) Mean Corpuscular Hemoglobin 29 pg (25-35) 29 pg (25-35) 29 pg (25-35) Mean Corpuscular Hemoglobin Concent 33 g/dL (31-37) 33 g/dL (31-37) 33 g/dL (31-37) Red Cell Distribution Width 14.2 % (11.5-14.5) 13.9 % (11.5-14.5) 13.9 % (11.5-14.5) Platelet Count 365 x10^3/uL (140-400) 309 x10^3/uL (140-400) 309 x10^3/uL (140-400) Neutrophils (%) (Auto) 56 % (31-73) 54 % (31-73) 56 % (31-73) Lymphocytes (%) (Auto) 34 % (24-48) 37 % (24-48) 34 % (24-48) Monocytes (%) (Auto) 7 % (0-9) 7 % (0-9) 7 % (0-9) Eosinophils (%) (Auto) 2 % (0-3) 2 % (0-3) 2 % (0-3) Basophils (%) (Auto) 1 % (0-3) 0 % (0-3) 1 % (0-3) Neutrophils # (Auto) 6.6 x10^3uL (1.8-7.7) 4.8 x10^3uL (1.8-7.7) 4.8 x10^3uL (1.8-7.7) Lymphocytes # (Auto) 4.0 x10^3/uL (1.0-4.8) 3.4 x10^3/uL (1.0-4.8) 2.9 x10^3/uL (1.0-4.8) Monocytes # (Auto) 0.8 x10^3/uL (0.0-1.1) 0.6 x10^3/uL (0.0-1.1) 0.6 x10^3/uL (0.0-1.1) Eosinophils # (Auto) 0.2 x10^3/uL (0.0-0.7) 0.2 x10^3/uL (0.0-0.7) 0.2 x10^3/uL (0.0-0.7) Basophils # (Auto) 0.1 x10^3/uL (0.0-0.2) 0.0 x10^3/uL (0.0-0.2) 0.0 x10^3/uL (0.0-0.2) Sodium Level 143 mmol/L (136-145) 143 mmol/L (136-145) 141 mmol/L (136-145) Potassium Level 3.7 mmol/L (3.5-5.1) 4.3 mmol/L (3.5-5.1) 4.2 mmol/L (3.5-5.1) Chloride Level 104 mmol/L (98-107) 106 mmol/L (98-107) 105 mmol/L (98-107) Carbon Dioxide Level 33 mmol/L (21-32) 30 mmol/L (21-32) 30 mmol/L (21-32) Anion Gap 6 (6-14) 7 (6-14) 6 (6-14) Blood Urea Nitrogen 18 mg/dL (7-20) 13 mg/dL (7-20) 16 mg/dL (7-20) Creatinine 0.8 mg/dL (0.6-1.0) 0.5 mg/dL (0.6-1.0) 0.7 mg/dL (0.6-1.0) Estimated GFR (Cockcroft-Gault) 73.4 126.3 85.6 BUN/Creatinine Ratio 23 (6-20) Glucose Level 114 mg/dL (70-99) 101 mg/dL (70-99) 104 mg/dL (70-99) Calcium Level 9.3 mg/dL (8.5-10.1) 9.0 mg/dL (8.5-10.1) 8.9 mg/dL (8.5-10.1) Total Bilirubin 0.2 mg/dL (0.2-1.0) Aspartate Amino Transf (AST/SGOT) 20 U/L (15-37) Alanine Aminotransferase (ALT/SGPT) 28 U/L (14-59) Alkaline Phosphatase 87 U/L (46-116) Troponin I Quantitative < 0.017 ng/mL (0.000-0.055) < 0.017 ng/mL (0.000-0.055) < 0.017 ng/mL (0.000-0.055) Total Protein 7.7 g/dL (6.4-8.2) Albumin 3.4 g/dL (3.4-5.0) Albumin/Globulin Ratio 0.8 (1.0-1.7) Triglycerides Level 130 mg/dL (0-150) Cholesterol Level 216 mg/dL (0-200) LDL Cholesterol, Calculated 151 mg/dL (0-100) VLDL Cholesterol, Calculated 26 mg/dL (0-40) Non-HDL Cholesterol Calculated 177 mg/dL (0-129) HDL Cholesterol 39 mg/dL (40-60) Cholesterol/HDL Ratio 5.5 Laboratory Tests Test 06/24/17 03:39 White Blood Count 8.6 x10^3/uL (4.0-11.0) Red Blood Count 4.83 x10^6/uL (3.50-5.40) Hemoglobin 13.8 g/dL (12.0-15.5) Hematocrit 41.4 % (36.0-47.0) Mean Corpuscular Volume 86 fL (79-100) Mean Corpuscular Hemoglobin 29 pg (25-35) Mean Corpuscular Hemoglobin Concent 33 g/dL (31-37) Red Cell Distribution Width 13.9 % (11.5-14.5) Platelet Count 309 x10^3/uL (140-400) Neutrophils (%) (Auto) 56 % (31-73) Lymphocytes (%) (Auto) 34 % (24-48) Monocytes (%) (Auto) 7 % (0-9) Eosinophils (%) (Auto) 2 % (0-3) Basophils (%) (Auto) 1 % (0-3) Neutrophils # (Auto) 4.8 x10^3uL (1.8-7.7) Lymphocytes # (Auto) 2.9 x10^3/uL (1.0-4.8) Monocytes # (Auto) 0.6 x10^3/uL (0.0-1.1) Eosinophils # (Auto) 0.2 x10^3/uL (0.0-0.7) Basophils # (Auto) 0.0 x10^3/uL (0.0-0.2) Sodium Level 141 mmol/L (136-145) Potassium Level 4.2 mmol/L (3.5-5.1) Chloride Level 105 mmol/L (98-107) Carbon Dioxide Level 30 mmol/L (21-32) Anion Gap 6 (6-14) Blood Urea Nitrogen 16 mg/dL (7-20) Creatinine 0.7 mg/dL (0.6-1.0) Estimated GFR (Cockcroft-Gault) 85.6 Glucose Level 104 mg/dL (70-99) Calcium Level 8.9 mg/dL (8.5-10.1) Triglycerides Level 130 mg/dL (0-150) Cholesterol Level 216 mg/dL (0-200) LDL Cholesterol, Calculated 151 mg/dL (0-100) VLDL Cholesterol, Calculated 26 mg/dL (0-40) Non-HDL Cholesterol Calculated 177 mg/dL (0-129) HDL Cholesterol 39 mg/dL (40-60) Cholesterol/HDL Ratio 5.5 Medications Current Medications Aspirin (Children'S Aspirin) 324 mg 1X ONCE PO Last administered on 20:07; Start 06/22/17 at 20:00; Stop 06/22/17 at 20:01; Status DC Sodium Chloride 1,000 ml @ 1,000 mls/hr 1X ONCE IV Last administered on 06/22 20:07; Start 06/22/17 at 20:00; Stop 06/22/17 at 20:59; Status DC Morphine Sulfate 4 mg PRN Q2HR PRN IV SEVERE PAIN; Start 06/22/17 at 21:45; Stop 06/23/17 at 21:44; Status DC Acetaminophen (Tylenol) 650 mg PRN Q4HRS PRN PO FEVER Last administered on 14:23; Start 06/22/17 at 21:45; Stop 06/23/17 at 21:44; Status DC Nitroglycerin (Nitrostat) 0.4 mg PRN Q5MIN PRN SL CHEST PAIN; Start 06/22/17 at 21:45; Stop 06/23/17 at 21:44; Status DC Albuterol/ Ipratropium (Duoneb) 3 ml RTBID NEB Last administered on 06/23/17t 07:08; Start 06/23/17 at 08:00; Stop 06/23/17 at 10:00; Status DC Info (Do NOT chart on this placeholder) 1 each 1X ONCE MC ; Start 06/23/17 at 02:00; Stop 06/23/17 at 02:01; Status UNV Influenza Virus Vaccine Quadrival (Fluarix Quad [id number] Syringe) 0.5 ml ONCE ONCE VAX IM Last administered on 06/23/17t 17:35; Start 06/23/17 at 09:00; Stop 06/23/17 at 09:01; Status DC Ondansetron HCl (Zofran) 4 mg PRN Q6HRS PRN IV NAUSEA/VOMITING; Start at 07:00; Stop 06/26/17 at 06:59 Fentanyl Citrate (Fentanyl 2ml Vial) 25 mcg PRN Q5MIN PRN IV MILD PAIN; Start 06/25/17 at 07:00; Stop 06/26/17 at 06:59 Fentanyl Citrate (Fentanyl 2ml Vial) 50 mcg PRN Q5MIN PRN IV MODERATE PAIN; Start 06/25/17 at 07:00; Stop 06/26/17 at 06:59 Morphine Sulfate 1 mg PRN Q10MIN PRN IV SEVERE PAIN; Start 06/25/17 at 07:00; Stop 06/26/17 at 06:59 Ringer's Solution 1,000 ml @ 30 mls/hr Q24H IV ; Start 06/25/17 at 07:00; Stop 06/25/17 at 18:59 Lidocaine HCl (Xylocaine-Mpf 1% Vial) 2 ml PRN 1X PRN ID IV START; Start 06/25 at 07:00; Stop 06/26/17 at 06:59 Hydromorphone HCl (Dilaudid) 0.5 mg PRN Q10MIN PRN IV SEV PAIN, Second choice; Start 06/25/17 at 07:00; Stop 06/26/17 at 06:59 Prochlorperazine Edisylate (Compazine) 5 mg PACU PRN PRN IV NAUSEA, MRX1; Start 06/25/17 at 07:00; Stop 06/26/17 at 06:59 Active Scripts Active Reported Amlodipine Besylate 5 Mg Tablet 5 Mg PO DAILY Metoprolol Succinate 50 Mg Tab.er.24h 100 Mg PO DAILY Fluoxetine Hcl 20 Mg Capsule 1 Cap PO DAILY Lisinopril-Hctz 20-12.5 Mg Tab (Lisinopril/Hydrochlorothiazide) 1 Each Tablet 1 Tab PO DAILY Vitals/I & O Vital Sign - Last 24 Hours 06/23/17 06/23/17 06/23/17 06/24/17 19:52 20:00 23:14 02:38 Temp 98.2 98.4 98.4 98.2 98.4 98.4 Pulse 69 58 62 Resp 18 18 20 B/P (MAP) 155/69 (97) 153/70 (97) 150/71 (97) Pulse Ox 97 97 96 O2 Delivery Room Air Room Air Room Air Room Air 06/24/17 06/24/17 06/24/17 06/24/17 07:00 08:00 10:55 15:00 Temp 97.9 97.8 97.6 97.9 97.8 97.6 Pulse 72 69 68 Resp 18 18 18 B/P (MAP) 144/75 (98) 138/62 (87) 136/73 (94) Pulse Ox 96 97 97 O2 Delivery Room Air Room Air Room Air Room Air Intake and Output 06/24/17 06/24/17 06/25/17 15:00 23:00 07:00 Intake Total 500 ml 1100 ml Output Total 625 ml Balance 500 ml 475 ml NING OLIVARES MD Jun 24, 2017 18:26
[2017-06-24] MEDS ORDERED: LIDOCAINE 2% TOPICAL JELLY 5GM TUBE. TP ONE (18:30)
[2017-06-24] MEDS ORDERED: BENZOCAINE ONE 20% MUCOSAL SPRAY. MM (18:30)
[2017-06-24] MEDS ORDERED: LIDOCAINE 2% VISCOUS 15 ML SOLUTION. MM ONE (18:30)
[2017-06-24 19:41] VITALS: BP 138/75
[2017-06-24 22:26] VITALS: BP 130/74
[2017-06-25 03:00] VITALS: BP 145/74
[2017-06-25 04:22] LABS: BASO % 0 % (0-3); EOS % 2 % (0-3); HEMATOCRIT 40.3 % (36.0-47.0); HEMOGLOBIN 13.6 g/dL (12.0-15.5); LYMPH # 3.2 x10^3/uL (1.0-4.8); LYMPH % 33 % (24-48); MEAN CORPUSCULAR HEMOGLOBIN 29 pg (25-35); MEAN CORPUSCULAR HGB CONC 34 g/dL (31-37); MEAN CORPUSCULAR VOLUME 86 fL (79-100); MONO % 7 % (0-9); NEUT % 58 % (31-73); PLATELET COUNT 313 x10^3/uL (140-400); RED BLOOD COUNT 4.72 x10^6/uL (3.50-5.40); WHITE BLOOD COUNT 9.6 x10^3/uL (4.0-11.0)
[2017-06-25 04:40] LABS: CALCIUM 8.9 mg/dL (8.5-10.1); CREATININE 0.7 mg/dL (0.6-1.0); GFR 85.6; POTASSIUM 4.1 mmol/L (3.5-5.1)
[2017-06-25 07:00] VITALS: BP 153/69
[2017-06-25] MEDS ORDERED: MORPHINE SULFATE 2 MG/ML DISP.SYRIN. IV PRN (07:00)
[2017-06-25] MEDS ORDERED: fentaNYL PF VIAL 100 MCG/2 ML VIAL IV PRN ×2 (07:00)
[2017-06-25] MEDS ORDERED: ONDANSETRON PF 4 MG/2 ML VIAL. IV PRN (07:00)
[2017-06-25] MEDS ORDERED: PROCHLORPERAZINE 10 MG/2 ML VIAL. IV PRN (07:00)
[2017-06-25] MEDS ORDERED: HYDROmorphone 2 MG/ML VIAL IV PRN (07:00)
[2017-06-25] MEDS ORDERED: IV RINGERS,LACTATED 1000ML 1,000 ML IV SCH (07:00)
[2017-06-25] MEDS ORDERED: LIDOCAINE 1% PF 2 ML VIAL. ID PRN (07:00)
[2017-06-25 11:00] VITALS: BP 138/78
[2017-06-25] MEDS ORDERED: LIDOCAINE 2% VISCOUS 15 ML SOLUTION. ONE (12:38)
[2017-06-25] MEDS ORDERED: BENZOCAINE ONE 20% MUCOSAL SPRAY. (12:38)
[2017-06-25] MEDS ORDERED: LIDOCAINE 2% TOPICAL JELLY 30GM TUBE. TP ONE ×2 (12:38)
--- NOTE | 2017-06-25 14:00 | PDOC ---
PROGRESS NOTES Chief Complaint Chief Complaint Chest pain ASSESSMENT AND PLAN: 1. CP: resolved. ruled our for ACS 2. 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 CHF: chronic diastolic with grade 1 DD by echo. Fluid overload by CXR at admit. symptomatically improved 4. CAD: no acute issues. mult W/U procedures done is past. as per Dr Real 5. COPD: no acute issues. nebs PRN 6. HTN: restart home meds 7. Dispo: home when cleared by cardiology History of Present Illness History of Present Illness denies CP or SOB. awaiting CUCA Vitals Vitals Vital Signs Date Time Temp Pulse Resp B/P (MAP) Pulse Ox O2 Delivery O2 Flow Rate FiO2 06/25/17 11:00 98.1 63 18 138/78 (98) 98 Room Air 98.1 Physical Exam General: Alert, Cooperative, No acute distress Heart: Regular rate Lungs: Clear Abdomen: Normal bowel sounds, Soft Extremities: No cyanosis, No edema Skin: No rashes Labs LABS Laboratory Tests Test 06/25/17 03:40 White Blood Count 9.6 x10^3/uL (4.0-11.0) Red Blood Count 4.72 x10^6/uL (3.50-5.40) Hemoglobin 13.6 g/dL (12.0-15.5) Hematocrit 40.3 % (36.0-47.0) Mean Corpuscular Volume 86 fL (79-100) Mean Corpuscular Hemoglobin 29 pg (25-35) Mean Corpuscular Hemoglobin Concent 34 g/dL (31-37) Red Cell Distribution Width 14.0 % (11.5-14.5) Platelet Count 313 x10^3/uL (140-400) Neutrophils (%) (Auto) 58 % (31-73) Lymphocytes (%) (Auto) 33 % (24-48) Monocytes (%) (Auto) 7 % (0-9) Eosinophils (%) (Auto) 2 % (0-3) Basophils (%) (Auto) 0 % (0-3) Neutrophils # (Auto) 5.5 x10^3uL (1.8-7.7) Lymphocytes # (Auto) 3.2 x10^3/uL (1.0-4.8) Monocytes # (Auto) 0.7 x10^3/uL (0.0-1.1) Eosinophils # (Auto) 0.1 x10^3/uL (0.0-0.7) Basophils # (Auto) 0.0 x10^3/uL (0.0-0.2) Sodium Level 142 mmol/L (136-145) Potassium Level 4.1 mmol/L (3.5-5.1) Chloride Level 105 mmol/L (98-107) Carbon Dioxide Level 30 mmol/L (21-32) Anion Gap 7 (6-14) Blood Urea Nitrogen 16 mg/dL (7-20) Creatinine 0.7 mg/dL (0.6-1.0) Estimated GFR (Cockcroft-Gault) 85.6 Glucose Level 115 mg/dL (70-99) Calcium Level 8.9 mg/dL (8.5-10.1) VIDYA LAWS MD Jun 25, 2017 14:00
[2017-06-25 15:00] VITALS: BP 150/72
[2017-06-25] MEDS: METOPROLOL SUCC 24HR ER 50 MG TAB.ER.24H. PO SCH (15:12)
[2017-06-25] MEDS: FLUoxetine HCL 20 MG CAPSULE PO SCH (15:12)
[2017-06-25] MEDS: hydroCHLOROthiazide 12.5 MG CAPSULE PO SCH (15:13)
[2017-06-25] MEDS: LISINOPRIL 20 MG TABLET PO SCH (15:13)
[2017-06-25] MEDS: amLODIPine BESYLATE 5 MG TABLET PO SCH (15:14)
--- NOTE | 2017-06-25 15:25 | CARD ---
APPROVED REPORT EXAM: Transesophageal echocardiogram with color flow Doppler. INDICATION Aortic Valve Disease Chest Pain Congenital Heart Disease Murmur Subaortic membrane PROCEDURE After obtaining informed consent, patient underwent transesophageal echo in the PACU. Sedation was provided by anesthesiologist, see EMR for medications administered. Sedation was achieved with Propofol 130mg intravenously. Transesophageal probe was inserted and advanced into esophagus by Tahir Real MD. The CUCA was performed without complications. Throughout the procedure, the blood pressure, pulse oximetry, cardiac rhythm, and rate were monitored . The patient tolerated the procedure without adverse effects. Recovery from conscious sedation was une ventful and vital signs were stable. LEFT VENTRICLE The left ventricle is normal size. There is normal left ventricular wall thickness. There is a subaor tic membrane present without significant aortic valve gradient present. Left ventricle systolic funct ion is normal. The Ejection Fraction is 55-60%. There is normal LV segmental wall motion. RIGHT VENTRICLE The right ventricle is normal size. The right ventricular systolic function is normal. ATRIA The left atrium size is normal. The right atrium size is normal. The interatrial septum is intact wit h no evidence for an atrial septal defect or patent foramen ovale as noted on 2-D or Doppler imaging. There is no thrombus noted in the left atrial appendage. AORTIC VALVE The aortic valve is normal in structure and function. There is a subvalvular membrane but no signific ant gradient was recorded by CW. The aortic valve is trileaflet. Doppler and Color Flow revealed no s ignificant aortic regurgitation. MITRAL VALVE The mitral valve is normal in structure and function. Doppler and Color Flow revealed no mitral valve regurgitation noted. TRICUSPID VALVE The tricuspid valve is normal in structure and function. PULMONIC VALVE The pulmonary valve is normal in structure and function. GREAT VESSELS The aortic root is normal in size. Pulmonary veins not visualized. The IVC was not visualized. The SV C was not visualized. PERICARDIAL EFFUSION There is no pleural effusion. Critical Notification Critical Value: No <Conclusion> There is normal left ventricular wall thickness. There is a subaortic membrane present without signif icant aortic valve gradient present. Left ventricle systolic function is normal. The Ejection Fraction is 55-60%. The left atrium size is normal. The right atrium size is normal. The aortic valve is normal in structure and function. There is a subvalvular membrane but no signific ant gradient was recorded by CW. The aortic valve is trileaflet. Doppler and Color Flow revealed no significant aortic regurgitation. The mitral valve is normal in structure and function. The tricuspid valve is normal in structure and function. The pulmonary valve is normal in structure and function.
--- NOTE | 2017-06-25 15:52 | PDOC ---
PROGRESS NOTES Subjective Subjective Pt had CUCA done Objective Objective Vital Signs Date Time Temp Pulse Resp B/P (MAP) Pulse Ox O2 Delivery O2 Flow Rate FiO2 06/25/17 15:14 68 150/72 06/25/17 15:00 98.2 18 98 Room Air 98.2 06/25/17 14:25 10 Physical Exam Physical Exam No significant changes in cardiac exam Assessment Assessment Pt's CUCA showed an aortic subvalvular membrane but there was no significant gradient by continuous wave doppler, the LV EF was normal. Pt stable and may go home when OK with Dr Garcia Problems Medical Problems: (1) Chest pain Status: Acute Comment Review of Relevant I have reviewed the following items edu (where applicable) has been applied. Labs Laboratory Tests Test 06/24/17 03:39 06/25/17 03:40 White Blood Count 8.6 x10^3/uL (4.0-11.0) 9.6 x10^3/uL (4.0-11.0) Red Blood Count 4.83 x10^6/uL (3.50-5.40) 4.72 x10^6/uL (3.50-5.40) Hemoglobin 13.8 g/dL (12.0-15.5) 13.6 g/dL (12.0-15.5) Hematocrit 41.4 % (36.0-47.0) 40.3 % (36.0-47.0) Mean Corpuscular Volume 86 fL (79-100) 86 fL (79-100) Mean Corpuscular Hemoglobin 29 pg (25-35) 29 pg (25-35) Mean Corpuscular Hemoglobin Concent 33 g/dL (31-37) 34 g/dL (31-37) Red Cell Distribution Width 13.9 % (11.5-14.5) 14.0 % (11.5-14.5) Platelet Count 309 x10^3/uL (140-400) 313 x10^3/uL (140-400) Neutrophils (%) (Auto) 56 % (31-73) 58 % (31-73) Lymphocytes (%) (Auto) 34 % (24-48) 33 % (24-48) Monocytes (%) (Auto) 7 % (0-9) 7 % (0-9) Eosinophils (%) (Auto) 2 % (0-3) 2 % (0-3) Basophils (%) (Auto) 1 % (0-3) 0 % (0-3) Neutrophils # (Auto) 4.8 x10^3uL (1.8-7.7) 5.5 x10^3uL (1.8-7.7) Lymphocytes # (Auto) 2.9 x10^3/uL (1.0-4.8) 3.2 x10^3/uL (1.0-4.8) Monocytes # (Auto) 0.6 x10^3/uL (0.0-1.1) 0.7 x10^3/uL (0.0-1.1) Eosinophils # (Auto) 0.2 x10^3/uL (0.0-0.7) 0.1 x10^3/uL (0.0-0.7) Basophils # (Auto) 0.0 x10^3/uL (0.0-0.2) 0.0 x10^3/uL (0.0-0.2) Sodium Level 141 mmol/L (136-145) 142 mmol/L (136-145) Potassium Level 4.2 mmol/L (3.5-5.1) 4.1 mmol/L (3.5-5.1) Chloride Level 105 mmol/L (98-107) 105 mmol/L (98-107) Carbon Dioxide Level 30 mmol/L (21-32) 30 mmol/L (21-32) Anion Gap 6 (6-14) 7 (6-14) Blood Urea Nitrogen 16 mg/dL (7-20) 16 mg/dL (7-20) Creatinine 0.7 mg/dL (0.6-1.0) 0.7 mg/dL (0.6-1.0) Estimated GFR (Cockcroft-Gault) 85.6 85.6 Glucose Level 104 mg/dL (70-99) 115 mg/dL (70-99) Calcium Level 8.9 mg/dL (8.5-10.1) 8.9 mg/dL (8.5-10.1) Triglycerides Level 130 mg/dL (0-150) Cholesterol Level 216 mg/dL (0-200) LDL Cholesterol, Calculated 151 mg/dL (0-100) VLDL Cholesterol, Calculated 26 mg/dL (0-40) Non-HDL Cholesterol Calculated 177 mg/dL (0-129) HDL Cholesterol 39 mg/dL (40-60) Cholesterol/HDL Ratio 5.5 Laboratory Tests Test 06/25/17 03:40 White Blood Count 9.6 x10^3/uL (4.0-11.0) Red Blood Count 4.72 x10^6/uL (3.50-5.40) Hemoglobin 13.6 g/dL (12.0-15.5) Hematocrit 40.3 % (36.0-47.0) Mean Corpuscular Volume 86 fL (79-100) Mean Corpuscular Hemoglobin 29 pg (25-35) Mean Corpuscular Hemoglobin Concent 34 g/dL (31-37) Red Cell Distribution Width 14.0 % (11.5-14.5) Platelet Count 313 x10^3/uL (140-400) Neutrophils (%) (Auto) 58 % (31-73) Lymphocytes (%) (Auto) 33 % (24-48) Monocytes (%) (Auto) 7 % (0-9) Eosinophils (%) (Auto) 2 % (0-3) Basophils (%) (Auto) 0 % (0-3) Neutrophils # (Auto) 5.5 x10^3uL (1.8-7.7) Lymphocytes # (Auto) 3.2 x10^3/uL (1.0-4.8) Monocytes # (Auto) 0.7 x10^3/uL (0.0-1.1) Eosinophils # (Auto) 0.1 x10^3/uL (0.0-0.7) Basophils # (Auto) 0.0 x10^3/uL (0.0-0.2) Sodium Level 142 mmol/L (136-145) Potassium Level 4.1 mmol/L (3.5-5.1) Chloride Level 105 mmol/L (98-107) Carbon Dioxide Level 30 mmol/L (21-32) Anion Gap 7 (6-14) Blood Urea Nitrogen 16 mg/dL (7-20) Creatinine 0.7 mg/dL (0.6-1.0) Estimated GFR (Cockcroft-Gault) 85.6 Glucose Level 115 mg/dL (70-99) Calcium Level 8.9 mg/dL (8.5-10.1) Medications Current Medications Aspirin (Children'S Aspirin) 324 mg 1X ONCE PO Last administered on 20:07; Start 06/22/17 at 20:00; Stop 06/22/17 at 20:01; Status DC Sodium Chloride 1,000 ml @ 1,000 mls/hr 1X ONCE IV Last administered on 06/22 20:07; Start 06/22/17 at 20:00; Stop 06/22/17 at 20:59; Status DC Morphine Sulfate 4 mg PRN Q2HR PRN IV SEVERE PAIN; Start 06/22/17 at 21:45; Stop 06/23/17 at 21:44; Status DC Acetaminophen (Tylenol) 650 mg PRN Q4HRS PRN PO FEVER Last administered on 14:23; Start 06/22/17 at 21:45; Stop 06/23/17 at 21:44; Status DC Nitroglycerin (Nitrostat) 0.4 mg PRN Q5MIN PRN SL CHEST PAIN; Start 06/22/17 at 21:45; Stop 06/23/17 at 21:44; Status DC Albuterol/ Ipratropium (Duoneb) 3 ml RTBID NEB Last administered on 06/23/17 07:08; Start 06/23/17 at 08:00; Stop 06/23/17 at 10:00; Status DC Info (Do NOT chart on this placeholder) 1 each 1X ONCE MC ; Start 06/23/17 at 02:00; Stop 06/23/17 at 02:01; Status UNV Influenza Virus Vaccine Quadrival (Fluarix Quad 8516-5624 Syringe) 0.5 ml ONCE ONCE VAX IM Last administered on 06/23/17 17:35; Start 06/23/17 at 09:00; Stop 06/23/17 at 09:01; Status DC Ondansetron HCl (Zofran) 4 mg PRN Q6HRS PRN IV NAUSEA/VOMITING; Start at 07:00; Stop 06/26/17 at 06:59 Fentanyl Citrate (Fentanyl 2ml Vial) 25 mcg PRN Q5MIN PRN IV MILD PAIN; Start 06/25/17 at 07:00; Stop 06/26/17 at 06:59 Fentanyl Citrate (Fentanyl 2ml Vial) 50 mcg PRN Q5MIN PRN IV MODERATE PAIN; Start 06/25/17 at 07:00; Stop 06/26/17 at 06:59 Morphine Sulfate 1 mg PRN Q10MIN PRN IV SEVERE PAIN; Start 06/25/17 at 07:00; Stop 06/26/17 at 06:59 Ringer's Solution 1,000 ml @ 30 mls/hr Q24H IV Last administered on t 14:00; Start 06/25/17 at 07:00; Stop 06/25/17 at 18:59 Lidocaine HCl (Xylocaine-Mpf 1% Vial) 2 ml PRN 1X PRN ID IV START; Start 06/25 at 07:00; Stop 06/26/17 at 06:59 Hydromorphone HCl (Dilaudid) 0.5 mg PRN Q10MIN PRN IV SEV PAIN, Second choice; Start 06/25/17 at 07:00; Stop 06/26/17 at 06:59 Prochlorperazine Edisylate (Compazine) 5 mg PACU PRN PRN IV NAUSEA, MRX1; Start 06/25/17 at 07:00; Stop 06/26/17 at 06:59 Lidocaine HCl (Xylocaine 2% Topical 5gm Tube) 1 jayson 1X ONCE TP ; Start at 18:30; Stop 06/24/17 at 18:34; Status DC Lidocaine HCl (Viscous Lidocaine) 15 ml 1X ONCE MM ; Start 06/24/17 at 18:30; Stop 06/24/17 at 18:34; Status DC Benzocaine (Hurricaine One) 3 spray 1X ONCE MM ; Start 06/24/17 at 18:30; Stop 06/24/17 at 18:34; Status DC Lidocaine HCl (Viscous Lidocaine) 15 ml STK-MED ONCE .ROUTE ; Start 06/25/17 at 12:38; Stop 06/25/17 at 12:39; Status DC Benzocaine (Hurricaine One) 1 spray STK-MED ONCE .ROUTE ; Start 06/25/17 at 12: 38; Stop 06/25/17 at 12:39; Status DC Lidocaine HCl (Xylocaine 2% Topical 30gm Tube) 30 jayson STK-MED ONCE TP ; Start 06/25/17 at 12:38; Stop 06/25/17 at 12:39; Status DC Lidocaine HCl (Xylocaine 2% Topical 30gm Tube) 30 jayson STK-MED ONCE TP ; Start 06/25/17 at 12:38; Stop 06/25/17 at 12:39; Status DC Amlodipine Besylate (Norvasc) 5 mg DAILY PO Last administered on 06/25/17 15: 14; Start 06/25/17 at 15:00 Fluoxetine HCl (PROzac) 20 mg DAILY PO Last administered on 06/25/17 15:12; Start 06/25/17 at 15:00 Metoprolol Succinate (Toprol Xl) 100 mg DAILY PO Last administered on 15:12; Start 06/25/17 at 15:00 Lisinopril (Prinivil) 20 mg DAILY PO Last administered on 06/25/17 15:13; Start 06/25/17 at 15:00 Hydrochlorothiazide (Microzide) 12.5 mg DAILY PO Last administered on 15:13; Start 06/25/17 at 15:00 Active Scripts Active Reported Amlodipine Besylate 5 Mg Tablet 5 Mg PO DAILY Metoprolol Succinate 50 Mg Tab.er.24h 100 Mg PO DAILY Lisinopril-Hctz 20-12.5 Mg Tab (Lisinopril/Hydrochlorothiazide) 1 Each Tablet 1 Tab PO DAILY Vitals/I & O Vital Sign - Last 24 Hours 06/24/17 06/24/17 06/24/17 06/25/17 19:30 19:41 22:26 03:00 Temp 98.0 98.9 98.3 98.0 98.9 98.3 Pulse 69 68 67 Resp 16 16 18 B/P (MAP) 138/75 (96) 130/74 (92) 145/74 (97) Pulse Ox 93 94 95 O2 Delivery Room Air Room Air Room Air Room Air 06/25/17 06/25/17 06/25/17 06/25/17 07:00 07:30 11:00 14:00 Temp 98.0 98.1 98.1 98.0 98.1 98.1 Pulse 61 63 65 Resp 18 18 B/P (MAP) 153/69 (97) 138/78 (98) 142/72 Pulse Ox 95 98 98 O2 Delivery Room Air Room Air Room Air Room Air 06/25/17 06/25/17 06/25/17 06/25/17 14:25 14:39 14:40 14:55 Temp 97.6 97.6 Pulse 69 72 66 Resp 16 16 16 B/P (MAP) 145/65 145/65 151/71 Pulse Ox 96 93 94 O2 Delivery Simple Mask Room Air Room Air Room Air O2 Flow Rate 10 06/25/17 06/25/17 06/25/17 06/25/17 15:00 15:12 15:13 15:14 Temp 98.2 98.2 Pulse 63 65 68 68 Resp 18 B/P (MAP) 150/72 (98) 150/72 150/72 150/72 Pulse Ox 98 O2 Delivery Room Air NING OLIVARES MD Jun 25, 2017 15:52
[2017-06-25 19:00] VITALS: BP 117/56
[2017-06-25 23:00] VITALS: BP 139/66
[2017-06-26 03:00] VITALS: BP 127/59
[2017-06-26 05:37] LABS: BASO % 1 % (0-3); EOS % 2 % (0-3); HEMOGLOBIN 14.1 g/dL (12.0-15.5); LYMPH # 3.1 x10^3/uL (1.0-4.8); LYMPH % 34 % (24-48); MEAN CORPUSCULAR HEMOGLOBIN 28 pg (25-35); MEAN CORPUSCULAR HGB CONC 33 g/dL (31-37); MEAN CORPUSCULAR VOLUME 87 fL (79-100); MONO % 7 % (0-9); NEUT % 57 % (31-73); PLATELET COUNT 329 x10^3/uL (140-400); RED BLOOD COUNT 4.95 x10^6/uL (3.50-5.40); RED CELL DISTRIBUTION WIDTH 14.2 % (11.5-14.5)
[2017-06-26 06:00] LABS: CALCIUM 9.2 mg/dL (8.5-10.1); CREATININE 0.6 mg/dL (0.6-1.0); GFR 102.3
[2017-06-26 07:00] VITALS: BP 145/70
[2017-06-26] MEDS: FLUoxetine HCL 20 MG CAPSULE PO SCH (08:47)
[2017-06-26] MEDS: hydroCHLOROthiazide 12.5 MG CAPSULE PO SCH (08:47)
[2017-06-26] MEDS: METOPROLOL SUCC 24HR ER 50 MG TAB.ER.24H. PO SCH (08:48)
[2017-06-26] MEDS: LISINOPRIL 20 MG TABLET PO SCH (08:48)
[2017-06-26] MEDS: amLODIPine BESYLATE 5 MG TABLET PO SCH (08:48)
--- NOTE | 2017-06-26 10:44 | PDOC ---
PULMONARY PROGRESS NOTES Subjective no soa feels better Vitals Vital Signs Date Time Temp Pulse Resp B/P (MAP) Pulse Ox O2 Delivery O2 Flow Rate FiO2 06/26/17 08:48 63 145/70 06/26/17 07:46 Room Air 06/26/17 07:00 97.6 16 97 97.6 06/25/17 14:25 10 General: Alert, No acute distress Lungs: Clear Cardiovascular: S1 Abdomen: Soft Neuro Exam: Alert Extremities: Other (trace edema) Labs Laboratory Tests Test 06/25/17 03:40 06/26/17 05:00 White Blood Count 9.6 x10^3/uL (4.0-11.0) 9.0 x10^3/uL (4.0-11.0) Red Blood Count 4.72 x10^6/uL (3.50-5.40) 4.95 x10^6/uL (3.50-5.40) Hemoglobin 13.6 g/dL (12.0-15.5) 14.1 g/dL (12.0-15.5) Hematocrit 40.3 % (36.0-47.0) 43.0 % (36.0-47.0) Mean Corpuscular Volume 86 fL (79-100) 87 fL (79-100) Mean Corpuscular Hemoglobin 29 pg (25-35) 28 pg (25-35) Mean Corpuscular Hemoglobin Concent 34 g/dL (31-37) 33 g/dL (31-37) Red Cell Distribution Width 14.0 % (11.5-14.5) 14.2 % (11.5-14.5) Platelet Count 313 x10^3/uL (140-400) 329 x10^3/uL (140-400) Neutrophils (%) (Auto) 58 % (31-73) 57 % (31-73) Lymphocytes (%) (Auto) 33 % (24-48) 34 % (24-48) Monocytes (%) (Auto) 7 % (0-9) 7 % (0-9) Eosinophils (%) (Auto) 2 % (0-3) 2 % (0-3) Basophils (%) (Auto) 0 % (0-3) 1 % (0-3) Neutrophils # (Auto) 5.5 x10^3uL (1.8-7.7) 5.1 x10^3uL (1.8-7.7) Lymphocytes # (Auto) 3.2 x10^3/uL (1.0-4.8) 3.1 x10^3/uL (1.0-4.8) Monocytes # (Auto) 0.7 x10^3/uL (0.0-1.1) 0.6 x10^3/uL (0.0-1.1) Eosinophils # (Auto) 0.1 x10^3/uL (0.0-0.7) 0.1 x10^3/uL (0.0-0.7) Basophils # (Auto) 0.0 x10^3/uL (0.0-0.2) 0.0 x10^3/uL (0.0-0.2) Sodium Level 142 mmol/L (136-145) 141 mmol/L (136-145) Potassium Level 4.1 mmol/L (3.5-5.1) 4.0 mmol/L (3.5-5.1) Chloride Level 105 mmol/L (98-107) 102 mmol/L (98-107) Carbon Dioxide Level 30 mmol/L (21-32) 31 mmol/L (21-32) Anion Gap 7 (6-14) 8 (6-14) Blood Urea Nitrogen 16 mg/dL (7-20) 19 mg/dL (7-20) Creatinine 0.7 mg/dL (0.6-1.0) 0.6 mg/dL (0.6-1.0) Estimated GFR (Cockcroft-Gault) 85.6 102.3 Glucose Level 115 mg/dL (70-99) 107 mg/dL (70-99) Calcium Level 8.9 mg/dL (8.5-10.1) 9.2 mg/dL (8.5-10.1) Laboratory Tests Test 06/26/17 05:00 White Blood Count 9.0 x10^3/uL (4.0-11.0) Red Blood Count 4.95 x10^6/uL (3.50-5.40) Hemoglobin 14.1 g/dL (12.0-15.5) Hematocrit 43.0 % (36.0-47.0) Mean Corpuscular Volume 87 fL (79-100) Mean Corpuscular Hemoglobin 28 pg (25-35) Mean Corpuscular Hemoglobin Concent 33 g/dL (31-37) Red Cell Distribution Width 14.2 % (11.5-14.5) Platelet Count 329 x10^3/uL (140-400) Neutrophils (%) (Auto) 57 % (31-73) Lymphocytes (%) (Auto) 34 % (24-48) Monocytes (%) (Auto) 7 % (0-9) Eosinophils (%) (Auto) 2 % (0-3) Basophils (%) (Auto) 1 % (0-3) Neutrophils # (Auto) 5.1 x10^3uL (1.8-7.7) Lymphocytes # (Auto) 3.1 x10^3/uL (1.0-4.8) Monocytes # (Auto) 0.6 x10^3/uL (0.0-1.1) Eosinophils # (Auto) 0.1 x10^3/uL (0.0-0.7) Basophils # (Auto) 0.0 x10^3/uL (0.0-0.2) Sodium Level 141 mmol/L (136-145) Potassium Level 4.0 mmol/L (3.5-5.1) Chloride Level 102 mmol/L (98-107) Carbon Dioxide Level 31 mmol/L (21-32) Anion Gap 8 (6-14) Blood Urea Nitrogen 19 mg/dL (7-20) Creatinine 0.6 mg/dL (0.6-1.0) Estimated GFR (Cockcroft-Gault) 102.3 Glucose Level 107 mg/dL (70-99) Calcium Level 9.2 mg/dL (8.5-10.1) Medications Active Scripts Medications Dose Route/Sig Max Daily Dose Days Date Category Amlodipine Besylate 5 Mg Tablet 5 Mg PO DAILY 06/23/17 Reported Metoprolol Succinate 50 Mg Tab.er.24h 100 Mg PO DAILY 06/23/17 Reported Fluoxetine Hcl 20 Mg Capsule 1 Cap PO DAILY 07/31/16 Reported Lisinopril-Hctz 20-12.5 Mg Tab (Lisinopril/Hydrochlorothiazide) 1 Each Tablet 1 Tab PO DAILY 07/31/16 Reported Impression . 1. Progressive dyspnea secondary to acute diastolic heart failure. 2. Acute abnormal x-ray compatible with heart failure. 3. Chronic obstructive pulmonary disease with no acute exacerbation. 4. Tobacco dependence in remission. Plan . 1. Follow cardiology input. 2. No further pulmonary workup needed. I suspect most of her symptoms are cardiac in origin. 3. home per cardiology MELIZA PAGE MD Jun 26, 2017 10:44
[2017-06-26 10:50] VITALS: BP 122/59
--- NOTE | 2017-06-26 14:32 | PDOC ---
PROGRESS NOTES Subjective Subjective No new complaints. I had a lengthy discussion yesterday with the patient and family about the results of the test and her condition. Objective Objective Vital Signs Date Time Temp Pulse Resp B/P (MAP) Pulse Ox O2 Delivery O2 Flow Rate FiO2 06/26/17 10:50 97.3 60 16 122/59 (80) 95 Room Air 97.3 06/25/17 14:25 10 Assessment Assessment The patient is stable cardiac-oneal. 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 I did not feel that the patient's symptoms are secondary to this and she needs to lose weight, diet, exercise, and address her anxiety issues. From a heart standpoint she may be discharged today. Problems Medical Problems: (1) Chest pain Status: Acute Comment Review of Relevant I have reviewed the following items edu (where applicable) has been applied. Labs Laboratory Tests Test 06/25/17 03:40 06/26/17 05:00 White Blood Count 9.6 x10^3/uL (4.0-11.0) 9.0 x10^3/uL (4.0-11.0) Red Blood Count 4.72 x10^6/uL (3.50-5.40) 4.95 x10^6/uL (3.50-5.40) Hemoglobin 13.6 g/dL (12.0-15.5) 14.1 g/dL (12.0-15.5) Hematocrit 40.3 % (36.0-47.0) 43.0 % (36.0-47.0) Mean Corpuscular Volume 86 fL (79-100) 87 fL (79-100) Mean Corpuscular Hemoglobin 29 pg (25-35) 28 pg (25-35) Mean Corpuscular Hemoglobin Concent 34 g/dL (31-37) 33 g/dL (31-37) Red Cell Distribution Width 14.0 % (11.5-14.5) 14.2 % (11.5-14.5) Platelet Count 313 x10^3/uL (140-400) 329 x10^3/uL (140-400) Neutrophils (%) (Auto) 58 % (31-73) 57 % (31-73) Lymphocytes (%) (Auto) 33 % (24-48) 34 % (24-48) Monocytes (%) (Auto) 7 % (0-9) 7 % (0-9) Eosinophils (%) (Auto) 2 % (0-3) 2 % (0-3) Basophils (%) (Auto) 0 % (0-3) 1 % (0-3) Neutrophils # (Auto) 5.5 x10^3uL (1.8-7.7) 5.1 x10^3uL (1.8-7.7) Lymphocytes # (Auto) 3.2 x10^3/uL (1.0-4.8) 3.1 x10^3/uL (1.0-4.8) Monocytes # (Auto) 0.7 x10^3/uL (0.0-1.1) 0.6 x10^3/uL (0.0-1.1) Eosinophils # (Auto) 0.1 x10^3/uL (0.0-0.7) 0.1 x10^3/uL (0.0-0.7) Basophils # (Auto) 0.0 x10^3/uL (0.0-0.2) 0.0 x10^3/uL (0.0-0.2) Sodium Level 142 mmol/L (136-145) 141 mmol/L (136-145) Potassium Level 4.1 mmol/L (3.5-5.1) 4.0 mmol/L (3.5-5.1) Chloride Level 105 mmol/L (98-107) 102 mmol/L (98-107) Carbon Dioxide Level 30 mmol/L (21-32) 31 mmol/L (21-32) Anion Gap 7 (6-14) 8 (6-14) Blood Urea Nitrogen 16 mg/dL (7-20) 19 mg/dL (7-20) Creatinine 0.7 mg/dL (0.6-1.0) 0.6 mg/dL (0.6-1.0) Estimated GFR (Cockcroft-Gault) 85.6 102.3 Glucose Level 115 mg/dL (70-99) 107 mg/dL (70-99) Calcium Level 8.9 mg/dL (8.5-10.1) 9.2 mg/dL (8.5-10.1) Laboratory Tests Test 06/26/17 05:00 White Blood Count 9.0 x10^3/uL (4.0-11.0) Red Blood Count 4.95 x10^6/uL (3.50-5.40) Hemoglobin 14.1 g/dL (12.0-15.5) Hematocrit 43.0 % (36.0-47.0) Mean Corpuscular Volume 87 fL (79-100) Mean Corpuscular Hemoglobin 28 pg (25-35) Mean Corpuscular Hemoglobin Concent 33 g/dL (31-37) Red Cell Distribution Width 14.2 % (11.5-14.5) Platelet Count 329 x10^3/uL (140-400) Neutrophils (%) (Auto) 57 % (31-73) Lymphocytes (%) (Auto) 34 % (24-48) Monocytes (%) (Auto) 7 % (0-9) Eosinophils (%) (Auto) 2 % (0-3) Basophils (%) (Auto) 1 % (0-3) Neutrophils # (Auto) 5.1 x10^3uL (1.8-7.7) Lymphocytes # (Auto) 3.1 x10^3/uL (1.0-4.8) Monocytes # (Auto) 0.6 x10^3/uL (0.0-1.1) Eosinophils # (Auto) 0.1 x10^3/uL (0.0-0.7) Basophils # (Auto) 0.0 x10^3/uL (0.0-0.2) Sodium Level 141 mmol/L (136-145) Potassium Level 4.0 mmol/L (3.5-5.1) Chloride Level 102 mmol/L (98-107) Carbon Dioxide Level 31 mmol/L (21-32) Anion Gap 8 (6-14) Blood Urea Nitrogen 19 mg/dL (7-20) Creatinine 0.6 mg/dL (0.6-1.0) Estimated GFR (Cockcroft-Gault) 102.3 Glucose Level 107 mg/dL (70-99) Calcium Level 9.2 mg/dL (8.5-10.1) Medications Current Medications Aspirin (Children'S Aspirin) 324 mg 1X ONCE PO Last administered on t 20:07; Start 10/16/17 at 20:00; Stop 06/22/17 at 20:01; Status DC Sodium Chloride 1,000 ml @ 1,000 mls/hr 1X ONCE IV Last administered on 06/22 20:07; Start 06/22/17 at 20:00; Stop 06/22/17 at 20:59; Status DC Morphine Sulfate 4 mg PRN Q2HR PRN IV SEVERE PAIN; Start 06/22/17 at 21:45; Stop 06/23/17 at 21:44; Status DC Acetaminophen (Tylenol) 650 mg PRN Q4HRS PRN PO FEVER Last administered on 14:23; Start 06/22/17 at 21:45; Stop 06/23/17 at 21:44; Status DC Nitroglycerin (Nitrostat) 0.4 mg PRN Q5MIN PRN SL CHEST PAIN; Start 06/22/17 at 21:45; Stop 06/23/17 at 21:44; Status DC Albuterol/ Ipratropium (Duoneb) 3 ml RTBID NEB Last administered on 06/23/17 07:08; Start 06/23/17 at 08:00; Stop 06/23/17 at 10:00; Status DC Info (Do NOT chart on this placeholder) 1 each 1X ONCE MC ; Start 06/23/17 at 02:00; Stop 06/23/17 at 02:01; Status UNV Influenza Virus Vaccine Quadrival (Fluarix Quad [id number] Syringe) 0.5 ml ONCE ONCE VAX IM Last administered on 06/23/17 17:35; Start 06/23/17 at 09:00; Stop 06/23/17 at 09:01; Status DC Ondansetron HCl (Zofran) 4 mg PRN Q6HRS PRN IV NAUSEA/VOMITING; Start at 07:00; Stop 06/25/17 at 19:14; Status DC Fentanyl Citrate (Fentanyl 2ml Vial) 25 mcg PRN Q5MIN PRN IV MILD PAIN; Start 06/25/17 at 07:00; Stop 06/25/17 at 19:14; Status DC Fentanyl Citrate (Fentanyl 2ml Vial) 50 mcg PRN Q5MIN PRN IV MODERATE PAIN; Start 06/25/17 at 07:00; Stop 06/25/17 at 19:14; Status DC Morphine Sulfate 1 mg PRN Q10MIN PRN IV SEVERE PAIN; Start 06/25/17 at 07:00; Stop 06/26/17 at 06:59; Status DC Ringer's Solution 1,000 ml @ 30 mls/hr Q24H IV Last administered on t 14:00; Start 06/25/17 at 07:00; Stop 06/25/17 at 18:59; Status DC Lidocaine HCl (Xylocaine-Mpf 1% Vial) 2 ml PRN 1X PRN ID IV START; Start 06/25 at 07:00; Stop 06/26/17 at 06:59; Status DC Hydromorphone HCl (Dilaudid) 0.5 mg PRN Q10MIN PRN IV SEV PAIN, Second choice; Start 06/25/17 at 07:00; Stop 06/25/17 at 19:14; Status DC Prochlorperazine Edisylate (Compazine) 5 mg PACU PRN PRN IV NAUSEA, MRX1; Start 06/25/17 at 07:00; Stop 06/25/17 at 19:14; Status DC Lidocaine HCl (Xylocaine 2% Topical 5gm Tube) 1 jayson 1X ONCE TP ; Start at 18:30; Stop 06/24/17 at 18:34; Status DC Lidocaine HCl (Viscous Lidocaine) 15 ml 1X ONCE MM ; Start 06/24/17 at 18:30; Stop 06/24/17 at 18:34; Status DC Benzocaine (Hurricaine One) 3 spray 1X ONCE MM ; Start 06/24/17 at 18:30; Stop 06/24/17 at 18:34; Status DC Lidocaine HCl (Viscous Lidocaine) 15 ml STK-MED ONCE .ROUTE ; Start 06/25/17 at 12:38; Stop 06/25/17 at 12:39; Status DC Benzocaine (Hurricaine One) 1 spray STK-MED ONCE .ROUTE ; Start 06/25/17 at 12: 38; Stop 06/25/17 at 12:39; Status DC Lidocaine HCl (Xylocaine 2% Topical 30gm Tube) 30 jayson STK-MED ONCE TP ; Start 06/25/17 at 12:38; Stop 06/25/17 at 12:39; Status DC Lidocaine HCl (Xylocaine 2% Topical 30gm Tube) 30 jayson STK-MED ONCE TP ; Start 06/25/17 at 12:38; Stop 06/25/17 at 12:39; Status DC Amlodipine Besylate (Norvasc) 5 mg DAILY PO Last administered on 06/26/17 08: 48; Start 06/25/17 at 15:00 Fluoxetine HCl (PROzac) 20 mg DAILY PO Last administered on 06/26/17 08:47; Start 06/25/17 at 15:00 Metoprolol Succinate (Toprol Xl) 100 mg DAILY PO Last administered on 08:48; Start 06/25/17 at 15:00 Lisinopril (Prinivil) 20 mg DAILY PO Last administered on 06/26/17 08:48; Start 06/25/17 at 15:00 Hydrochlorothiazide (Microzide) 12.5 mg DAILY PO Last administered on 08:47; Start 06/25/17 at 15:00 Active Scripts Active Reported Amlodipine Besylate 5 Mg Tablet 5 Mg PO DAILY Metoprolol Succinate 50 Mg Tab.er.24h 100 Mg PO DAILY Fluoxetine Hcl 20 Mg Capsule 1 Cap PO DAILY Lisinopril-Hctz 20-12.5 Mg Tab (Lisinopril/Hydrochlorothiazide) 1 Each Tablet 1 Tab PO DAILY Vitals/I & O Vital Sign - Last 24 Hours 06/25/17 06/25/17 06/25/17 06/25/17 14:39 14:40 14:55 15:00 Temp 98.2 98.2 Pulse 72 66 63 Resp 16 16 18 B/P (MAP) 145/65 151/71 150/72 (98) Pulse Ox 93 94 98 O2 Delivery Room Air Room Air Room Air Room Air 06/25/17 06/25/17 06/25/17 06/25/17 15:12 15:13 15:14 19:00 Temp 98.3 98.3 Pulse 65 68 68 62 Resp 18 B/P (MAP) 150/72 150/72 150/72 117/56 (76) Pulse Ox 96 O2 Delivery Room Air 06/25/17 06/25/17 06/26/17 06/26/17 19:25 23:00 03:00 07:00 Temp 97.9 97.8 97.6 97.9 97.8 97.6 Pulse 63 60 61 Resp 17 16 16 B/P (MAP) 139/66 (90) 127/59 (81) 145/70 (95) Pulse Ox 98 97 97 O2 Delivery Room Air Room Air Room Air Room Air 06/26/17 06/26/17 06/26/17 06/26/17 07:46 08:48 08:48 08:48 Pulse 62 63 63 B/P (MAP) 145/70 145/70 145/70 O2 Delivery Room Air 06/26/17 10:50 Temp 97.3 97.3 Pulse 60 Resp 16 B/P (MAP) 122/59 (80) Pulse Ox 95 O2 Delivery Room Air NING OLIVARES MD Jun 26, 2017 14:32
[2017-06-26 14:38] VITALS: BP 113/62
--- NOTE | 2017-06-29 18:26 | DS ---
DATE OF DISCHARGE: 06/26/2017 CHIEF COMPLAINT: Chest pain. HOSPITAL COURSE: The patient is a 61-year-old , who presented with chest pain. She was ruled out for ACS by serial enzymes and EKGs. Because of a history of CAD as well as CHF, grade 1 diastolic, she was noted to have mild fluid overload, which was treated with diuresis. 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 This was deemed stable by her psychiatric cns, Dr. Real. No further interventions were undertaken, and the patient was cleared to return to home. PHYSICAL EXAMINATION: VITAL SIGNS: Blood pressure of 138/78, heart rate of 63, respiratory rate at 18. She is afebrile. GENERAL: This is an obese 61-year-old , alert and oriented, no acute distress. LUNGS: Clear. HEART: Regular rate and rhythm. ABDOMEN: Has positive bowel sounds, soft, nontender. EXTREMITIES: Show no edema. DISCHARGE DATE: 06/26. DISCHARGE DIAGNOSES: Chest pain, noncardiac. DISCHARGE DISPOSITION: To home. DISCHARGE CONDITION: Improved. DISCHARGE MEDICATIONS: Please refer to MAR. DISCHARGE INSTRUCTIONS: The patient will follow up with her PCP and psychiatric cns in the near future. VIDYA LAWS MD DR: MALIK/nts JOB#: [id number] / [id number] CESAR
== END 2017-06-26 14:56 | disposition home or self-care (01) | DRG 391 ==
LOC: ER 19:32 → 2 SOUTH 21:39
PROVIDERS: ADMIT Internal Medicine; ATTEND Internal Medicine
DX: K21.9 Gastro-esophageal reflux disease without esophagitis (principal); I50.43 Acute on chronic combined systolic (congestive) and diastolic (congestive) heart failure; Z68.41 Body mass index [BMI] 40.0-44.9, adult; I31.3 Pericardial effusion (noninflammatory); I11.0 Hypertensive heart disease with heart failure; E66.9 Obesity, unspecified; F17.201 Nicotine dependence, unspecified, in remission; F41.9 Anxiety disorder, unspecified; I25.119 Atherosclerotic heart disease of native coronary artery with unspecified angina pectoris; F32.9 Major depressive disorder, single episode, unspecified; I35.0 Nonrheumatic aortic (valve) stenosis; J44.9 Chronic obstructive pulmonary disease, unspecified; Z82.3 Family history of stroke; Z82.49 Family history of ischemic heart disease and other diseases of the circulatory system; Z83.3 Family history of diabetes mellitus; Z86.61 Personal history of infections of the central nervous system; Z90.710 Acquired absence of both cervix and uterus
CPT/HCPCS: 36415; 71010; 80048; 80053; 80061; 84484; 85025; 90686; 93005; 93306; 93312; 93320; 93325; 94250; 94640; 94760; 96360; 96361; J7030; J7120; J7620; 99285-25

== ENCOUNTER 2018-03-15 21:41 | Emergency (ER) | payer BC ==
[2018-03-15 22:18] LABS: ADD MAN DIFF? NO
[2018-03-15] MEDS: IV NORMAL SALINE 1000ML BAG 1,000 ML IV (22:21)
[2018-03-15 22:22] LABS: BASO % 0 % (0-3); EOS # 0.2 x10^3/uL (0.0-0.7); EOS % 2 % (0-3); HEMATOCRIT 41.1 % (36.0-47.0); HEMOGLOBIN 13.8 g/dL (12.0-15.5); LYMPH # 3.2 x10^3/uL (1.0-4.8); LYMPH % 27 % (24-48); MEAN CORPUSCULAR HEMOGLOBIN 29 pg (25-35); MEAN CORPUSCULAR HGB CONC 34 g/dL (31-37); MEAN CORPUSCULAR VOLUME 86 fL (79-100); MONO # 0.9 x10^3/uL (0.0-1.1); MONO % 8 % (0-9); NEUT # 7.4 x10^3uL (1.8-7.7); NEUT % 63 % (31-73); PLATELET COUNT 317 x10^3/uL (140-400); RED BLOOD COUNT 4.76 x10^6/uL (3.50-5.40); WHITE BLOOD COUNT 11.7 x10^3/uL (4.0-11.0)
[2018-03-15] MEDS: ACETAMINOPHEN 500 MG TABLET PO (22:22)
[2018-03-15] MEDS: fentaNYL PF VIAL 100 MCG/2 ML VIAL IV (22:22)
[2018-03-15 22:23] LABS: BILIRUBIN,URINE NEGATIVE (NEG); CLARITY,URINE CLEAR; COLOR,URINE YELLOW; GLUCOSE,URINE NEGATIVE (NEG); NITRITE,URINE NEGATIVE (NEG); PH,URINE 5.5; PROTEIN,URINE NEGATIVE (NEG-TRACE)
[2018-03-15 22:29] LABS: ANION GAP 6 (6-14); BLOOD UREA NITROGEN 17 mg/dL (7-20); BUN/CREATININE RATIO 19 (6-20); CALCIUM 8.5 mg/dL (8.5-10.1); CARBON DIOXIDE 31 mmol/L (21-32); CHLORIDE 103 mmol/L (98-107); CREATININE 0.9 mg/dL (0.6-1.0); GFR 63.9; GLUCOSE 92 mg/dL (70-99); POTASSIUM 3.6 mmol/L (3.5-5.1); SODIUM 140 mmol/L (136-145)
[2018-03-15 22:30] LABS: PROTHROMBIN TIME PATIENT 12.7 SEC (11.7-14.0)
[2018-03-15 22:31] LABS: BACTERIA,URINE 0 /HPF (0-FEW); SQUAMOUS EPITHELIAL CELL,UR MOD /LPF
[2018-03-15 22:35] LABS: ALBUMIN 3.4 g/dL (3.4-5.0); ALBUMIN/GLOBULIN RATIO 0.8 (1.0-1.7); ALK PHOS 116 U/L (46-116); ALT (SGPT) 32 U/L (14-59); AST (SGOT) 24 U/L (15-37); TOTAL BILIRUBIN 0.2 mg/dL (0.2-1.0); TOTAL PROTEIN 7.6 g/dL (6.4-8.2)
[2018-03-15 22:37] LABS: LACTIC ACID 1.5 mmol/L (0.4-2.0); TROPONINI < 0.017 ng/mL (0.000-0.055)
[2018-03-16 00:33] LABS: NEGATIVE OBC STREP NEG; POSITIVE OBC STREP POS
== END 2018-03-16 00:54 | disposition home or self-care (01) ==
LOC: ER 03-16 00:54
DX: J02.9 Acute pharyngitis, unspecified (principal); I11.0 Hypertensive heart disease with heart failure; I50.9 Heart failure, unspecified; I25.10 Atherosclerotic heart disease of native coronary artery without angina pectoris; E78.00 Pure hypercholesterolemia, unspecified; Z90.710 Acquired absence of both cervix and uterus; Z88.6 Allergy status to analgesic agent; Z91.041 Radiographic dye allergy status
CPT/HCPCS: 36415; 70450; 71045; 80053; 81001; 83605; 84484; 85025; 85610; 87040; 87086; 87880; 96374; 99285-25; J3010; J7030

== ENCOUNTER 2018-11-15 10:06 | Emergency (ER) | payer BC ==
[~2018-11-15] VITALS: Ht 162.6 cm; Wt 79.4 kg
[~2018-11-15 10:06] MED LIST changes: +AMLO5TAB10 PO; +AMOX1TAB61 PO; +ATOR20TA58 PO; +CITA20TA6 PO; +HYDR-3164 PO; +METO50TA29 PO; +ONDA4TAB7 PO; +Pantoprazole PO; +SIME80TA14 PO
[2018-11-15] MEDS ORDERED: IV NORMAL SALINE 500ML BAG 500 ML IV ONE (10:45)
[2018-11-15] MEDS ORDERED: ONDANSETRON PF 4 MG/2 ML VIAL. IV ONE (10:45)
[2018-11-15] MEDS ORDERED: fentaNYL PF VIAL 100 MCG/2 ML VIAL IV ONE (10:45)
[2018-11-15 11:00] LABS: BASO % 1 % (0-3); EOS # 0.2 x10^3/uL (0.0-0.7); EOS % 2 % (0-3); HEMATOCRIT 42.2 % (36.0-47.0); LYMPH # 2.3 x10^3/uL (1.0-4.8); LYMPH % 29 % (24-48); MEAN CORPUSCULAR HEMOGLOBIN 28 pg (25-35); MEAN CORPUSCULAR HGB CONC 33 g/dL (31-37); MEAN CORPUSCULAR VOLUME 85 fL (79-100); MONO # 0.6 x10^3/uL (0.0-1.1); MONO % 8 % (0-9); NEUT # 4.8 x10^3uL (1.8-7.7); NEUT % 61 % (31-73); PLATELET COUNT 349 x10^3/uL (140-400); RED BLOOD COUNT 4.98 x10^6/uL (3.50-5.40); RED CELL DISTRIBUTION WIDTH 14.6 % (11.5-14.5); WHITE BLOOD COUNT 7.9 x10^3/uL (4.0-11.0)
[2018-11-15 11:07] LABS: CALCIUM 8.8 mg/dL (8.5-10.1); CREATININE 0.6 mg/dL (0.6-1.0); GFR 101.6; POTASSIUM 3.8 mmol/L (3.5-5.1)
[2018-11-15 11:09] LABS: BILIRUBIN,URINE NEGATIVE (NEG); CLARITY,URINE CLEAR; COLOR,URINE YELLOW; NITRITE,URINE NEGATIVE (NEG); PROTEIN,URINE NEGATIVE (NEG-TRACE); UROBILINOGEN,URINE 0.2 mg/dL (0.2 mg/dL)
[2018-11-15 11:14] LABS: ALBUMIN 3.5 g/dL (3.4-5.0); ALBUMIN/GLOBULIN RATIO 0.8 (1.0-1.7); TOTAL BILIRUBIN 0.6 mg/dL (0.2-1.0); TOTAL PROTEIN 7.7 g/dL (6.4-8.2)
[2018-11-15 11:21] LABS: BACTERIA,URINE FEW /HPF (0-FEW); SQUAMOUS EPITHELIAL CELL,UR MOD /LPF; WBC,URINE OCC /HPF (0-4)
--- NOTE | 2018-11-15 11:23 | RAD ---
PQRS Compliance Statement: One or more of the following individualized dose reduction techniques were utilized for this examination: 1. Automated exposure control 2. Adjustment of the mA and/or kV according to patient size 3. Use of iterative reconstruction technique CT ABDOMEN PELVIS WO CONTRAST Clinical Indication: MID ABDOMEN PAIN X 5 DAYS. H/O HERNIAS Comparison: CT abdomen and pelvis without contrast, September 12, 2017. Technique: Helical CT imaging of the abdomen and pelvis is performed without IV or oral contrast. Findings: Evaluation of solid organs and bowel is limited without oral and IV contrast, decreasing sensitivity for detection of pathology. Median sternotomy wires. Cardiac size normal. Lung bases are clear. Cholecystectomy. Liver, spleen, pancreas, adrenal glands, abdominal aorta caliber, and kidneys are normal. There is a large fat-containing supraumbilical hernia, similar to prior study. There is a left periumbilical hernia that contains fat and multiple small bowel loops. The length of small bowel in the hernia has increased from the prior study. The hernia is mildly increased in size. There are several subcentimeter mesenteric lymph nodes near the neck of the hernia. There is a right infraumbilical fat-containing hernia. More inferiorly there is a second fat-containing right infraumbilical hernia. There is a fat-containing left infraumbilical hernia. The infraumbilical hernias are stable. There is no dilated small bowel. No colon wall thickening. The appendix is normal. Urinary bladder is normal. Hysterectomy. Ovaries are symmetric. No pelvic free fluid. Degenerative spondylosis of L4/L5. IMPRESSION: 1. Left periumbilical hernia has mildly increased in size. Hernia contains fat and multiple small bowel loops. No small bowel obstruction. 2. There are other fat-containing ventral hernias that are stable. Electronically signed by: Boom Schaffer MD (11/15/2018 11:20 AM) [id number]
--- NOTE | 2018-11-15 11:27 | PHYS DOC ---
Past Medical History Past Medical History: CAD, CHF, Depression, High Cholesterol, Hypertension, Unknown, Other Additional Past Medical Histor: chest tumor, MENINGITIS R/T IBUPROFEN USE Past Surgical History: Hysterectomy Additional Past Surgical Histo: chest tumor removal, hernia Alcohol Use: None Drug Use: None Adult General Chief Complaint Chief Complaint: DIARRHEA HPI HPI 63-year-old female presents with a 3 four-day history of nausea vomiting and diarrhea. She states she has had some sick family members with something similar. Today she's had more abdominal pain and cramping. She denies any fever chills or sweats. She's had no melena or hematochezia. She has not had any appetite over the last several days. [] Review of Systems Review of Systems Constitutional: Denies fever or chills [] Eyes: Denies change in visual acuity, redness, or eye pain [] HENT: Denies nasal congestion or sore throat [] Respiratory: Denies cough or shortness of breath [] Cardiovascular: No additional information not addressed in HPI [] GI: Per history of present illness [] : Denies dysuria or hematuria [] Musculoskeletal: Denies back pain or joint pain [] Integument: Denies rash or skin lesions [] Neurologic: Denies headache, focal weakness or sensory changes [] Endocrine: Denies polyuria or polydipsia [] All other systems were reviewed and found to be within normal limits, except as documented in this note. Current Medications Current Medications Current Medications Medications (Trade) Dose Ordered Sig/Oh Start Time Stop Time Status Last Admin Dose Admin Fentanyl Citrate (Fentanyl 2ml Vial) 50 mcg 1X ONCE 11/15/18 10:45 11/15/18 10:46 DC 11/15/18 11:07 50 MCG Ondansetron HCl (Zofran) 4 mg 1X ONCE 11/15/18 10:45 11/15/18 10:46 DC 11/15/18 11:06 4 MG Sodium Chloride 500 ml @ 500 mls/hr 1X ONCE 11/15/18 10:45 11/15/18 11:44 11/15/18 10:47 500 MLS/HR Allergies Allergies Allergies Coded Allergies Type Severity Reaction Last Updated Verified Iodinated Contrast- Oral and IV Dye Allergy Intermediate 09/10/17 Yes ibuprofen Allergy Intermediate 09/10/17 Yes Physical Exam Physical Exam Constitutional: Well developed, well nourished, no acute distress, non-toxic appearance. [] HENT: Normocephalic, atraumatic, bilateral external ears normal, oropharynx moist, no oral exudates, nose normal. [] Eyes: PERRLA, EOMI, conjunctiva normal, no discharge. [] Neck: Normal range of motion, no tenderness, supple, no stridor. [] Cardiovascular:Heart rate regular rhythm, no murmur [] Lungs & Thorax: Bilateral breath sounds clear to auscultation [] Abdomen: Lower abdominal hernia. [] Skin: Warm, dry, no erythema, no rash. [] Back: No tenderness, no CVA tenderness. [] Extremities: No tenderness, no cyanosis, no clubbing, ROM intact, no edema. [] Neurologic: Alert and oriented X 3, normal motor function, normal sensory function, no focal deficits noted. [] Psychologic: Affect normal, judgement normal, mood normal. [] Current Patient Data Vital Signs Vital Signs Date Time Temp Pulse Resp B/P (MAP) Pulse Ox O2 Delivery O2 Flow Rate FiO2 11/15/18 10:21 98.8 68 18 145/67 (93) 99 Room Air 98.8 Lab Values Laboratory Tests Test 11/15/18 10:35 11/15/18 10:40 Urine Collection Type Clean catch Urine Color Yellow Urine Clarity Clear Urine pH 5.0 Urine Specific Parlin 1.015 Urine Protein Negative mg/dL (NEG-TRACE) Urine Glucose (UA) Negative mg/dL (NEG) Urine Ketones (Stick) Negative mg/dL (NEG) Urine Blood Moderate (NEG) Urine Nitrite Negative (NEG) Urine Bilirubin Negative (NEG) Urine Urobilinogen Dipstick 0.2 mg/dL (0.2 mg/dL) Urine Leukocyte Esterase Negative (NEG) Urine RBC 3-5 /HPF (0-2) Urine WBC Occ /HPF (0-4) Urine Squamous Epithelial Cells Mod /LPF Urine Bacteria Few /HPF (0-FEW) Urine Mucus Marked /LPF White Blood Count 7.9 x10^3/uL (4.0-11.0) Red Blood Count 4.98 x10^6/uL (3.50-5.40) Hemoglobin 14.0 g/dL (12.0-15.5) Hematocrit 42.2 % (36.0-47.0) Mean Corpuscular Volume 85 fL (79-100) Mean Corpuscular Hemoglobin 28 pg (25-35) Mean Corpuscular Hemoglobin Concent 33 g/dL (31-37) Red Cell Distribution Width 14.6 % (11.5-14.5) H Platelet Count 349 x10^3/uL (140-400) Neutrophils (%) (Auto) 61 % (31-73) Lymphocytes (%) (Auto) 29 % (24-48) Monocytes (%) (Auto) 8 % (0-9) Eosinophils (%) (Auto) 2 % (0-3) Basophils (%) (Auto) 1 % (0-3) Neutrophils # (Auto) 4.8 x10^3uL (1.8-7.7) Lymphocytes # (Auto) 2.3 x10^3/uL (1.0-4.8) Monocytes # (Auto) 0.6 x10^3/uL (0.0-1.1) Eosinophils # (Auto) 0.2 x10^3/uL (0.0-0.7) Basophils # (Auto) 0.0 x10^3/uL (0.0-0.2) Sodium Level 143 mmol/L (136-145) Potassium Level 3.8 mmol/L (3.5-5.1) Chloride Level 103 mmol/L (98-107) Carbon Dioxide Level 28 mmol/L (21-32) Anion Gap 12 (6-14) Blood Urea Nitrogen 11 mg/dL (7-20) Creatinine 0.6 mg/dL (0.6-1.0) Estimated GFR (Cockcroft-Gault) 101.6 BUN/Creatinine Ratio 18 (6-20) Glucose Level 104 mg/dL (70-99) H Calcium Level 8.8 mg/dL (8.5-10.1) Total Bilirubin 0.6 mg/dL (0.2-1.0) Aspartate Amino Transferase (AST) 21 U/L (15-37) Alanine Aminotransferase (ALT) 29 U/L (14-59) Alkaline Phosphatase 80 U/L (46-116) Total Protein 7.7 g/dL (6.4-8.2) Albumin 3.5 g/dL (3.4-5.0) Albumin/Globulin Ratio 0.8 (1.0-1.7) L Lipase 106 U/L (73-393) Laboratory Tests 11/15/18 10:40 Laboratory Tests 11/15/18 10:40 EKG EKG [] Radiology/Procedures Radiology/Procedures [] Impressions: PROCEDURE: CT ABDOMEN PELVIS WO CONTRAST PQRS Compliance Statement: One or more of the following individualized dose reduction techniques were utilized for this examination: 1. Automated exposure control 2. Adjustment of the mA and/or kV according to patient size 3. Use of iterative reconstruction technique CT ABDOMEN PELVIS WO CONTRAST Clinical Indication: MID ABDOMEN PAIN X 5 DAYS. H/O HERNIAS Comparison: CT abdomen and pelvis without contrast, September 12, 2017. Technique: Helical CT imaging of the abdomen and pelvis is performed without IV or oral contrast. Findings: Evaluation of solid organs and bowel is limited without oral and IV contrast, decreasing sensitivity for detection of pathology. Median sternotomy wires. Cardiac size normal. Lung bases are clear. Cholecystectomy. Liver, spleen, pancreas, adrenal glands, abdominal aorta caliber, and kidneys are normal. There is a large fat-containing supraumbilical hernia, similar to prior study. There is a left periumbilical hernia that contains fat and multiple small bowel loops. The length of small bowel in the hernia has increased from the prior study. The hernia is mildly increased in size. There are several subcentimeter mesenteric lymph nodes near the neck of the hernia. There is a right infraumbilical fat-containing hernia. More inferiorly there is a second fat-containing right infraumbilical hernia. There is a fat-containing left infraumbilical hernia. The infraumbilical hernias are stable. There is no dilated small bowel. No colon wall thickening. The appendix is normal. Urinary bladder is normal. Hysterectomy. Ovaries are symmetric. No pelvic free fluid. Degenerative spondylosis of L4/L5. IMPRESSION: 1. Left periumbilical hernia has mildly increased in size. Hernia contains fat and multiple small bowel loops. No small bowel obstruction. 2. There are other fat-containing ventral hernias that are stable. Course & Med Decision Making Course & Med Decision Making Pertinent Labs and Imaging studies reviewed. (See chart for details) [ED course: Evaluation reveals a 63-year-old female with acute gastroenteritis. She was given IV fluids and Zofran which completely eliminated her symptoms. I' ve let her know that I thought this was mainly viral. I think she is okay to have her surgery tomorrow. She can take Zofran if she has any further nausea today.] Dragon Disclaimer Dragon Disclaimer This electronic medical record was generated, in whole or in part, using a voice recognition dictation system. Departure Departure Impression: Primary Impression: Abdominal pain Additional Impression: Gastroenteritis Disposition: HOME, SELF-CARE Condition: IMPROVED Referrals: UNKNOWN PCP NAME (PCP) Patient Instructions: Viral Gastroenteritis Additional Instructions: Return to the emergency department with any new or concerning symptoms Scripts Ondansetron Hcl (ZOFRAN) 4 Mg Tablet 1 TAB PO Q8HRS PRN for NAUSEA, #20 TAB Prov: KILLIAN DENT DO 11/15/18 Problem Qualifiers Primary Impression: Abdominal pain Abdominal location: generalized Qualified Codes: R10.84 - Generalized abdominal pain KILLIAN DENT DO Nov 15, 2018 11:26
[2018-11-15 11:28] VITALS: BP 106/54
[2018-11-15] MEDS ORDERED: ONDA4TAB7 PO (11:39)
--- NOTE | 2018-11-18 10:32 | NUR ---
Late entry made to Medical Record. IV Stop time transcribed from eMAR to IV spreadsheet
== END 2018-11-15 11:57 | disposition home or self-care (01) ==
LOC: ER 10:06
DX: K52.9 Noninfective gastroenteritis and colitis, unspecified (principal); K42.9 Umbilical hernia without obstruction or gangrene; K43.9 Ventral hernia without obstruction or gangrene; I11.0 Hypertensive heart disease with heart failure; I50.9 Heart failure, unspecified; I25.10 Atherosclerotic heart disease of native coronary artery without angina pectoris; E78.00 Pure hypercholesterolemia, unspecified; Z90.710 Acquired absence of both cervix and uterus; Z88.6 Allergy status to analgesic agent; Z91.041 Radiographic dye allergy status; Z88.8 Allergy status to other drugs, medicaments and biological substances
CPT/HCPCS: 36415; 74176; 80053; 81001; 83690; 85025; 96374; 96375; 99284; J2405; J3010; J7040; 96361

== ENCOUNTER 2021-08-24 07:37 | Emergency (ER) | payer BC, OTHER ==
[~2021-08-24] VITALS: Ht 162.6 cm; Wt 200.0 kg
[~2021-08-24 07:37] MED LIST changes: +AMLO-186 PO; -AMLO5TAB10 PO; +FLUO20CA22 PO; -FLUO20CA8 PO; +LISI1TAB37 PO; -LISI1TAB5 PO
--- NOTE | 2021-08-24 08:37 | PHYS DOC ---
Past Medical History Past Medical History: CAD, CHF, Depression, High Cholesterol, Hypertension, Unknown, Other Additional Past Medical Histor: chest tumor, MENINGITIS R/T IBUPROFEN USE Past Surgical History: Cholecystectomy, Hysterectomy Additional Past Surgical Histo: chest tumor removal, hernia Smoking Status: Former Smoker Alcohol Use: None Drug Use: None Adult General Chief Complaint Chief Complaint: SHORTNESS OF BREATH HPI HPI The patient is a 65-year-old female with a history of hypertension, hyperlipidemia, depression and anxiety. She is Covid vaccinated. She is [place]ian-speaking and fluent telephonic interpretation is used together history. She developed symptoms of Covid about a month ago per her report and tested positive about 2 weeks ago. She presents for evaluation of multiple persistent symptoms including gradual onset intermittent bilateral frontal headache, shortness of breath at times, mild pleuritic nonexertional midsternal nonradiating chest discomfort, mild watery diarrhea (about 3 episodes per day over the past few days), mild fatigue. Patient reports that all symptoms have been present for 2 or more weeks and that there is nothing new or different going on today. She denies persistent fevers, vomiting, upper respiratory congestion/rhinorrhea, cough, sore throat, abdominal pain, flank pain, back pain, dysuria, hematuria, polyuria or oliguria, pain or swelling in her legs. Patient is alert and pleasantly and appropriately interactive and in no acute distress with completely appropriate vital signs including oxygenation upon initial evaluation here in the emergency department. Respiratory effort is no rmal and lungs are clear to auscultation. Patient notes that she has not been taking any medications to help with her symptoms at home. Review of Systems Review of Systems A 12 point review of systems was completed and was negative except where noted in HPI above. Current Medications Current Medications Current Medications Medications (Trade) Dose Ordered Sig/Oh Start Time Stop Time Status Last Admin Dose Admin Acetaminophen (Tylenol) 1,000 mg 1X ONCE 08/24/21 09:00 08/24/21 09:01 DC 08/24/21 08:53 1,000 MG Diphenhydramine HCl (Benadryl) 25 mg 1X ONCE 08/24/21 10:15 08/24/21 10:23 DC 08/24/21 10:19 25 MG Prochlorperazine Edisylate (Compazine) 10 mg 1X ONCE 08/24/21 09:00 08/24/21 09:01 DC 08/24/21 08:53 10 MG Sodium Chloride 1,000 ml @ 1,000 mls/hr 1X ONCE 08/24/21 09:00 08/24/21 09:59 DC 08/24/21 08:54 1,000 MLS/HR Allergies Allergies Allergies Coded Allergies Type Severity Reaction Last Updated Verified Iodinated Contrast Media Allergy Intermediate 09/10/17 Yes ibuprofen Allergy Intermediate 09/10/17 Yes Physical Exam Physical Exam 65-year-old female appearing nontoxic and in no acute distress. Head is normocephalic and atraumatic. Neck is supple and nontender. No JVD. Oropharynx is moist. Lungs are clear to auscultation at all stations. No wheezes, rales or rhonchi, no other adventitious sounds, no tachypnea, speaking comfortably in full sentences. There is a normal S1 and S2 without rubs or gallops and capillary refill is appropriate, less than 2 seconds globally. Abdomen is soft, nontender and nondistended. Remote hernia repair surgical scar, vertically oriented, to the midline upper abdomen. Skin is warm and dry without cyanosis, clubbing or edema. Psychiatrically, the patient demonstrates appropriate mood and affect and is alert. Evaluation of the extremities reveals BUEs and BLEs neurovascularly intact distally with strength out of 5, sensation intact light touch in all nerve distributions, radial, DP and PT pulses 2+ and equal bilaterally, capillary refill less than 2 seconds, hands and feet warm and well-perfused. No dependent peripheral edema distally. No calf tenderness or swelling bilaterally. Homans test is negative bilaterally. Neurologically, cranial nerves II through XII are intact and there are no lateralizing deficits seen. Speech is normal. Language is normal. Coordination is normal. There is no dysmetria rinxbr-yq-waap or kmbt-kw-gbmc bilaterally. Strength is 5 out of 5 at all joints of bilateral upper and lower extremities. Sensation is intact to light touch in bilateral upper and lower extremities. Patient ambulates with a narrow, steady, nonataxic gait here in the emergency department and is alert and oriented x4. Current Patient Data Vital Signs Vital Signs Date Time Temp Pulse Resp B/P (MAP) Pulse Ox O2 Delivery O2 Flow Rate FiO2 08/24/21 10:21 80 16 120/76 (91) 97 Room Air 08/24/21 07:44 99.3 99.3 Lab Values Laboratory Tests Test 08/24/21 08:45 White Blood Count 16.2 x10^3/uL (4.0-11.0) H Red Blood Count 4.82 x10^6/uL (3.50-5.40) Hemoglobin 13.6 g/dL (12.0-15.5) Hematocrit 41.0 % (36.0-47.0) Mean Corpuscular Volume 85 fL (79-100) Mean Corpuscular Hemoglobin 28 pg (25-35) Mean Corpuscular Hemoglobin Concent 33 g/dL (31-37) Red Cell Distribution Width 14.1 % (11.5-14.5) Platelet Count 382 x10^3/uL (140-400) Neutrophils (%) (Auto) 71 % (31-73) Lymphocytes (%) (Auto) 19 % (24-48) L Monocytes (%) (Auto) 7 % (0-9) Eosinophils (%) (Auto) 2 % (0-3) Basophils (%) (Auto) 1 % (0-3) Neutrophils # (Auto) 11.5 x10^3/uL (1.8-7.7) H Lymphocytes # (Auto) 3.1 x10^3/uL (1.0-4.8) Monocytes # (Auto) 1.1 x10^3/uL (0.0-1.1) Eosinophils # (Auto) 0.4 x10^3/uL (0.0-0.7) Basophils # (Auto) 0.2 x10^3/uL (0.0-0.2) Prothrombin Time 13.0 SEC (11.7-14.0) Prothrombin Time INR 1.0 (0.8-1.1) Activated Partial Thromboplast Time 30 SEC (24-38) D-Dimer (Kamala) 0.90 ug/mlFEU (0.00-0.50) H Sodium Level 140 mmol/L (136-145) Potassium Level 4.0 mmol/L (3.5-5.1) Chloride Level 104 mmol/L (98-107) Carbon Dioxide Level 32 mmol/L (21-32) Anion Gap 4 (6-14) L Blood Urea Nitrogen 17 mg/dL (7-20) Creatinine 0.6 mg/dL (0.6-1.0) Estimated GFR (Cockcroft-Gault) 101.0 BUN/Creatinine Ratio 28 (6-20) H Glucose Level 119 mg/dL (70-99) H Calcium Level 8.5 mg/dL (8.5-10.1) Total Bilirubin 0.7 mg/dL (0.2-1.0) Aspartate Amino Transferase (AST) 14 U/L (15-37) L Alanine Aminotransferase (ALT) 32 U/L (14-59) Alkaline Phosphatase 81 U/L (46-116) Troponin I High Sensitivity 14 ng/L (4-50) FC-Arm-Q-Type Natriuretic Peptide 227 pg/mL (0-124) H Total Protein 6.4 g/dL (6.4-8.2) Albumin 2.5 g/dL (3.4-5.0) L Albumin/Globulin Ratio 0.6 (1.0-1.7) L Laboratory Tests 08/24/21 08:45 Laboratory Tests 08/24/21 08:45 EKG EKG Sinus rhythm, rate 74, no acute ST elevation or depression, MO 160, QRS 84, QTc 445, EP interpretation. Nonischemic tracing, intervals appropriate. Radiology/Procedures Radiology/Procedures Perfusion only lung scan 08/24/2021 CLINICAL HISTORY: Elevated d-dimer. Shortness of breath. Covid 19. Chest pain. TECHNIQUE: After the intravenous administration of 5.5 mCi of Technetium 99m MAA, perfusion images of both lungs were obtained using the gamma camera. FINDINGS: Comparison is made to a portable chest radiograph obtained earlier today. This demonstrates mild cardiomegaly. Patchy bilateral lung infiltrates are noted. Homogeneous perfusion of the radionuclide throughout both lungs is seen. No perfusion defect is seen. IMPRESSION: No perfusion defect is seen. Electronically signed by: Alexander Arroyo MD (08/24/2021 12:54 PM) [id number] DICTATED and SIGNED BY: ALEXANDER ARROYO MD DATE: 08/24/21 [id number] Study: XR CHEST 1V Indication: Shortness of air. Comparison: 08/16/2021 Findings: Worsened appearance of the chest with progressive subpleural/basilar opacities. No large effusion or pneumothorax. Mild elevation of the right hemidiaphragm with the appearance exacerbated by lordotic beam angulation. Similar configuration of the cardiomediastinal silhouette and adali. Status post median sternotomy. Impression: Worsened appearance of the chest from 08/16/2021 with more extensive subpleural/basilar infiltrates. The pattern of airspace disease is often seen with an atypical/viral pneumonia. Electronically signed by: KYLE IRIZARRY MD (08/24/2021 9:18 AM) [id number] DICTATED and SIGNED BY: KYLE IRIZARRY MD DATE: 08/24/21 [id number] 0 Course & Med Decision Making Course & Med Decision Making Well-appearing 65-year-old female presenting for intermittent gradual onset saad ateral frontal headache, mild shortness of breath, intermittent mild pleuritic midsternal chest discomfort, mild watery diarrhea and persistent fatigue a few weeks after developing Covid symptoms, confirmed positive about 2 weeks ago. Vital signs and clinical examination are reassuring and neurologic examination is nonfocal. Has not been taking any medicines at home for her symptoms. Will place IV and give IV fluids and medication for discomfort as noted and will then reevaluate. Will check labs, EKG and chest x-ray. 1330: Patient has been observed uneventfully on the customer service engineer for multiple hours here in the emergency department. She feels much, much better after medication and fluids here in the emergency department. Oxygen saturation around 97%. Heart rate appropriate. Blood pressures serially are appropriate. Large work-up is without much evidence of acute process aside from leukocytosis to 16,000 and persistent patchy multifocal infiltrates on chest x-ray. D-dimer was minimally elevated so a perfusion scan was obtained which does not reveal any evidence of PE. I discussed again with the patient the exact timing of her Covid symptom onset. She states that she began having Covid symptoms about 3 weeks ago. In view of this, and of her leukocytosis and renewed symptoms over the past few days, per discussion with her, will cover for bacterial pneumonia with cefdinir and azithromycin, though pulmonary findings probably represent residual Covid pneumonia. Will discharge home with Tylenol for discomfort, antibiotics as above and close follow-up with primary care. Patient is to monitor her oxygen levels at home with a pulse oximeter. She understands that if she feels worse instead of better or develops other new symptoms of concern that she will need to return to the emergency department right away for reevaluation. All questions are answered Dragon Disclaimer Jadon Disclaimer This electronic medical record was generated, in whole or in part, using a voice recognition dictation system. Departure Departure Impression: Primary Impression: Acute headache Additional Impressions: Shortness of breath Pleuritic chest pain Other fatigue Community acquired pneumonia COVID-19 Disposition: HOME / SELF CARE / HOMELESS Condition: IMPROVED Patient Instructions: Pleurisy, Pneumonia, Adult, Shortness of Breath Additional Instructions: Follow-up very closely with your primary care doctor in the office in the next 2 to 4 days for a reevaluation of your symptoms and to discussion of next best steps in care. There is some pneumonia in your lungs which is probably just due to Covid but because of how long you have had symptoms for we are going to cover you with two antibiotics for bacterial pneumonia, cefdinir and azithromycin. Take as prescribed until the medicines are gone. Take a 500 mg extract Tylenol pill every 6 hours as needed for discomfort. Return to the emergency department right away for worsening symptoms of any kind or for any other new symptoms of concern. As we discussed, please use your pulse oximeter to monitor your oxygen levels at home. They should be 92% or above consistently and if they drop below 90% consistently we need you to come back to see us. Scripts Acetaminophen (ACETAMINOPHEN) 500 Mg Tablet 1 TAB PO PRN Q6HRS PRN for pain or fever, #60 TAB 0 Refills Prov: ALEXANDER VILLELA MD 08/24/21 Azithromycin (ZITHROMAX) 250 Mg Tablet 1 PKG PO UD, #1 PKG Prov: ALEXANDER VILLELA MD 08/24/21 Cefdinir (CEFDINIR) 300 Mg Capsule 1 CAP PO BID for 10 Days, #20 CAP Prov: ALEXANDER VILLELA MD 08/24/21 Problem Qualifiers ALEXANDER VILLELA MD Aug 24, 2021 08:37
[2021-08-24] MEDS ORDERED: IV NORMAL SALINE 1000ML BAG 1,000 ML IV ONE (09:00)
[2021-08-24] MEDS ORDERED: ACETAMINOPHEN 500 MG TABLET PO ONE (09:00)
[2021-08-24] MEDS ORDERED: diphenhydrAMINE 50 MG/ML VIAL IVP ONE ×2 (09:00→10:15)
[2021-08-24] MEDS ORDERED: PROCHLORPERAZINE 10 MG/2 ML VIAL. IV ONE (09:00)
[2021-08-24 09:03] LABS: BASO # 0.2 x10^3/uL (0.0-0.2); BASO % 1 % (0-3); EOS # 0.4 x10^3/uL (0.0-0.7); EOS % 2 % (0-3); HEMOGLOBIN 13.6 g/dL (12.0-15.5); LYMPH # 3.1 x10^3/uL (1.0-4.8); LYMPH % 19 % (24-48); MEAN CORPUSCULAR HEMOGLOBIN 28 pg (25-35); MEAN CORPUSCULAR HGB CONC 33 g/dL (31-37); MEAN CORPUSCULAR VOLUME 85 fL (79-100); MONO # 1.1 x10^3/uL (0.0-1.1); MONO % 7 % (0-9); NEUT # 11.5 x10^3/uL (1.8-7.7); NEUT % 71 % (31-73); PLATELET COUNT 382 x10^3/uL (140-400); RED BLOOD COUNT 4.82 x10^6/uL (3.50-5.40); RED CELL DISTRIBUTION WIDTH 14.1 % (11.5-14.5); WHITE BLOOD COUNT 16.2 x10^3/uL (4.0-11.0)
[2021-08-24 09:12] LABS: CALCIUM 8.5 mg/dL (8.5-10.1); CREATININE 0.6 mg/dL (0.6-1.0)
[2021-08-24 09:18] LABS: ALBUMIN 2.5 g/dL (3.4-5.0); ALBUMIN/GLOBULIN RATIO 0.6 (1.0-1.7); TOTAL BILIRUBIN 0.7 mg/dL (0.2-1.0); TOTAL PROTEIN 6.4 g/dL (6.4-8.2)
--- NOTE | 2021-08-24 09:20 | RAD ---
Study: XR CHEST 1V Indication: Shortness of air. Comparison: 08/16/2021 Findings: Worsened appearance of the chest with progressive subpleural/basilar opacities. No large effusion or pneumothorax. Mild elevation of the right hemidiaphragm with the appearance exacerbated by lordotic beam angulation . Similar configuration of the cardiomediastinal silhouette and adali. Status post median sternotomy. Impression: Worsened appearance of the chest from 08/16/2021 with more extensive subpleural/basilar infiltrates. The pattern of airspace disease is often seen with an atypical/viral pneumonia. Electronically signed by: KYLE IRIZARRY MD (08/24/2021 9:18 AM) [id number]
[2021-08-24 09:46] LABS: D-DIMER 0.9 ug/mlFEU (0.00-0.50)
--- NOTE | 2021-08-24 12:57 | RAD ---
Perfusion only lung scan 08/24/2021 CLINICAL HISTORY: Elevated d-dimer. Shortness of breath. Covid 19. Chest pain. TECHNIQUE: After the intravenous administration of 5.5 mCi of Technetium 99m MAA, perfusion images of both lungs were obtained using the gamma camera. FINDINGS: Comparison is made to a portable chest radiograph obtained earlier today. This demonstrates mild cardiomegaly. Patchy bilateral lung infiltrates are noted. Homogeneous perfusion of the radionuclide throughout both lungs is seen. No perfusion defect is seen. IMPRESSION: No perfusion defect is seen. Electronically signed by: Alexander Lao MD (08/24/2021 12:54 PM) [id number]
[2021-08-24] MEDS ORDERED: CEFD300C PO (13:39)
[2021-08-24] MEDS ORDERED: AZIT250T PO (13:39)
[2021-08-24] MEDS ORDERED: ACET500T68 PO (13:41)
[2021-08-24 13:47] VITALS: BP 114/55
--- NOTE | 2021-08-25 08:11 | EKG ---
[facility] [address] [place] [id number] Test Date: 2021-08-24 Test Time: 07:55:31 Pat Name: SHILA CHAVEZ Department: Room: Gender: F Drift[place]: : 1955 Requested By: ANTON VILLELA Order Number: [id number] Reading MD: Measurements Intervals [place] Rate: 74 P: 8 [place]: 160 QRS: 5 QRSD: 84 T: 24 QT: 396 QTc: 445 Interpretive Statements SINUS RHYTHM NORMAL ECG RI6.02 No previous ECG available for comparison
== END 2021-08-24 14:42 | disposition home or self-care (01) ==
LOC: ER 07:37
DX: U07.1 COVID-19 (principal); J18.9 Pneumonia, unspecified organism; R07.81 Pleurodynia; R51.9 Headache, unspecified; I11.0 Hypertensive heart disease with heart failure; I50.9 Heart failure, unspecified; I25.10 Atherosclerotic heart disease of native coronary artery without angina pectoris; E78.00 Pure hypercholesterolemia, unspecified; E78.5 Hyperlipidemia, unspecified; Z91.041 Radiographic dye allergy status; Z88.6 Allergy status to analgesic agent
CPT/HCPCS: 36415; 71045; 78580; 80053; 83880; 84484; 85025; 85379; 85610; 85730; 93005; 96361; 96374; 96375; 96376; 99285; A9540; J0780; J1200; J7030